=== PATIENT | female | born 1955 | race Caucasian/White ===

== ENCOUNTER 2023-03-04 14:34 | Outpatient (CLI) | payer MEDICARE, OTHER, SELFPAY ==
--- NOTE | ~2023-03-04 | XR_ITS ---
EXAMINATION: XR lumbar spine min 4V DATE: 03/04/2023 15:52 INDICATION: Rheumatoid arthritis with rheumatoid factor. TECHNIQUE: 5 views of lumbar spine were obtained. COMPARISON: None. FINDINGS: There is 8 degrees dextrocurvature of lumbar spine. There is 3 mm anterolisthesis of L3 on L4. Vertebral body heights are normal. There is moderately decreased disc height at L3-L4 and mildly decreased disc height at L4-L5. There is multilevel facet joint osteoarthritis, severe bilaterally fr om L3-L4 through L5-S1. IMPRESSION: 1. Moderate lumbar spondylosis. Reviewed, dictated and finalized at location E.
--- NOTE | ~2023-03-04 | XR_ITS ---
EXAMINATION: XR knee RT min 4V DATE: 03/04/2023 15:52 INDICATION: Rheumatoid arthritis with rheumatoid factor. TECHNIQUE: 4 views of right knee including weightbearing views were obtained. COMPARISON: None. FINDINGS: There is lateral subluxation of patella. No fracture. There is severe osteoarthritis of med ial and patellofemoral compartments and moderate osteoarthritis of lateral compartment. There is a sm all knee joint effusion. IMPRESSION: 1. Severe right knee osteoarthritis. 2. Small right knee joint effusion. Reviewed, dictated and finalized at location E.
--- NOTE | ~2023-03-04 | XR_ITS ---
EXAMINATION: XR knee LT min 4V DATE: 03/04/2023 15:52 INDICATION: Rheumatoid arthritis with rheumatoid factor. TECHNIQUE: 4 views of left knee including weightbearing views were obtained. COMPARISON: None. FINDINGS: Bone alignment is normal. No fracture. There is severe osteoarthritis of lateral compartmen t and mild osteoarthritis of medial and patellofemoral compartments. No knee joint effusion. IMPRESSION: 1. Severe left knee osteoarthritis. Reviewed, dictated and finalized at location E.
--- NOTE | ~2023-03-04 | XR_ITS ---
EXAMINATION: XR foot LT standing 2V DATE: 03/04/2023 15:52 INDICATION: Rheumatoid arthritis with rheumatoid factor. TECHNIQUE: 2 views of left foot with weightbearing were obtained. COMPARISON: None. FINDINGS: Bone alignment is normal. No fracture. There is mild osteoarthritis of talonavicular joint, first metatarsophalangeal joint, and some of the interphalangeal joints. There are enthesophytes at the posterior and plantar aspects of calcaneal tuberosity. IMPRESSION: 1. Mild polyarticular osteoarthritis. Reviewed, dictated and finalized at location E.
--- NOTE | ~2023-03-04 | XR_ITS ---
EXAMINATION: XR hand BI arthritis min 3V DATE: 03/04/2023 15:52 INDICATION: Rheumatoid arthritis with rheumatoid factor. TECHNIQUE: 4 views of right hand and 4 views of left hand on a total of 7 radiographs were obtained. COMPARISON: None. FINDINGS: RIGHT HAND: Scapholunate dissociation is noted. There is dorsal tilt of lunate, consistent with dorsa l intercalated segmental instability (DISI). There is moderate osteoarthritis of radioscaphoid joint, consistent with scapholunate advanced collapse (SLAC). There is mild osteoarthritis of triscaphe jose nt and first carpometacarpal joint. There is mild osteoarthritis of first metacarpophalangeal joint a nd some of the interphalangeal joints. There is severe osteoarthritis of first interphalangeal joint and moderate osteoarthritis of third proximal interphalangeal joint and second distal interphalangeal joint. LEFT HAND: Bone alignment is normal. No fracture. There is mild osteoarthritis of triscaphe joint. Th ere is severe osteoarthritis of triscaphe joint and mild osteoarthritis of first carpometacarpal join t. There is moderate osteoarthritis of first and second metacarpophalangeal joints. There is mild ost eoarthritis of some of the interphalangeal joints. There is severe osteoarthritis of second distal in terphalangeal joint and moderate osteoarthritis of third and fourth distal interphalangeal joints. IMPRESSION: 1. 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 2. Polyarticular osteoarthritis. No evidence of inflammatory arthropathy. Reviewed, dictated and finalized at location E. IMPRESSION: 1. Right-sided scapholunate dissociation with scapholunate advanced collapse (S LAC). 2. Polyarticular osteoarthritis. No evidence of inflammatory arthropathy.
--- NOTE | ~2023-03-04 | XR_ITS ---
EXAMINATION: XR foot RT standing 2V DATE: 03/04/2023 15:52 INDICATION: Rheumatoid arthritis with rheumatoid factor. TECHNIQUE: 2 views of right foot with weightbearing were obtained. COMPARISON: None. FINDINGS: Bone alignment is normal. No fracture. Osteopenia is noted. There is mild osteoarthritis of talonavicular joint and some of the interphalangeal joints. There are erosions versus subchondral cy sts of head of first proximal phalanx. There are enthesophytes at the posterior and plantar aspects o f calcaneal tuberosity. IMPRESSION: 1. Erosions versus subchondral cysts of head of first proximal phalanx, which may be secondary to ost eoarthritis or inflammatory arthropathy such as gout. 2. Polyarticular osteoarthritis. Reviewed, dictated and finalized at location E. IMPRESSION: 1. Erosions versus subchondral cysts of head of first proximal phalanx, which m ay be secondary to osteoarthritis or inflammatory arthropathy such as gout. 2. Polyarticular osteoarthritis.
[2023-03-04 16:13] LABS: Hematocrit 41.4 % (37.0-47.0); Hemoglobin 12.3 g/dL (12.0-15.0); Mean Corpuscular HGB Conc 29.7 g/dl (32-36); Mean Corpuscular Hemoglobin 25.2 pg (26-34); Mean Corpuscular Volume 84.7 fl (80-100); Mean Platelet Volume 10.1 fl (7.4-10.4); Platelet Count Result 254 k/mm3 (150-375); Red Blood Count 4.89 M/mm3 (4.2-5.4); White Blood Count 9.4 K/mm3 (4.5-10.0)
[2023-03-04 16:36] LABS: Alanine Aminotransferase 16 U/L (6-35); Albumin Level 4.2 g/dL (3.5-5.1); Alkaline Phosphatase 111 U/L (38-126); Anion Gap 6 mmol/L (8-16); Aspartate Amino Transferase 25 U/L (14-36); Bilirubin,Total 0.4 mg/dL (0.2-1.3); Blood Urea Nitrogen 17 mg/dL (7-17); CRP 0.9 mg/dL (<1.0); Calcium 9.6 mg/dL (8.4-10.2); Carbon Dioxide 32 mmol/L (22-30); Chloride 101 mmol/L (98-107); Estimated Glomerular Filt Rate > 60; Glucose 107 mg/dL (65-110); Potassium 4.6 mmol/L (3.4-5.0); Sodium 139 mmol/L (137-145)
[2023-03-04 16:49] LABS: Erythrocyte Sedimentation Rate 28 mm/hr (0-20)
[2023-03-04 16:58] LABS: Appearance Urine Clear (Clear); Bacteria Urine Rare /hpf; Bilirubin Urine Negative (Negative); Blood Urine Negative (Negative); Color Urine Yellow (Yellow); Glucose Urine UA 3+ mg/dL (Negative); Ketones Urine Negative (Negative); Leukocyte Esterase Ur Trace LEU/UL (Negative); Nitrate Urine Negative (Negative); Non Pathogenic Casts 0-2; Protein Urine Negative (Negative); RBC Urine 0-2 /hpf (0-2); Specific Grav Ur 1.013 (1.001-1.035); Squamous Epithelial Cell Urine Occasional /hpf (Few); Urobilinogen Urine 0.2 mg/dL (<2.0); WBC Urine 0-5 /hpf
[2023-03-04 17:00] LABS: Add Urine Microscopic? YES
[2023-03-10 22:51] LABS: Anti Cyclic Citrullinated Pept >250 Units (<20)
== END 2023-03-04 14:35 | disposition home or self-care (01) ==
PROVIDERS: PCP Family Medicine; Visit Provider Internal Medicine
DX: M05.79 Rheumatoid arthritis with rheumatoid factor of multiple sites without organ or systems involvement (principal); R76.8 Other specified abnormal immunological findings in serum; M15.9 Polyosteoarthritis, unspecified; Z79.899 Other long term (current) drug therapy; Z71.89 Other specified counseling; R89.9 Unspecified abnormal finding in specimens from other organs, systems and tissues; M47.816 Spondylosis without myelopathy or radiculopathy, lumbar region; M25.461 Effusion, right knee
CPT/HCPCS: 36415; 72110; 73130; 73564; 73620; 80053; 81001; 85027; 85652; 86140; 86200

== ENCOUNTER 2025-05-05 13:33 | Emergency (ER) | payer MEDICARE, OTHER, SELFPAY ==
--- OUTSIDE RECORDS SUMMARY | 2016-06-18 12:00 | XMS_ITS | Continuity of Care Document ---
Author Organization [facility] Address [address] [place] [phone] Phone Care Team Providers Care Giant Tire Repairer Name Role Phone Laurentmandie Zamzam MYRICK Unavailable Unavailable Procedures Procedure Date Progress Note THERAPEUTIC EXERCISES MANUAL THERAPY HOT/COLD PACK ELECTRIC STIMULATION UNA THERAPEUTIC EXERCISES MANUAL THERAPY HOT/COLD PACK ELECTRIC STIMULATION UNATT THERAPEUTIC EXERCISES NEUROMUSCULAR RE-ED MANUAL THERAPY HOT/COLD PACK ELECTRIC STIMULATION UNATT THERAPEUTIC EXERCISES NEUROMUSCULAR RE-ED MANUAL THERAPY HOT/COLD PACK ELECTRIC STIMULATION UNATT [facility] [employer] THERAPEUTIC EXERCISES MANUAL THERAPY HOT/COLD PACK ELECTRIC STIMULATION UNATT THERAPEUTIC EXERCISES MANUAL THERAPY HOT/COLD PACK ELECTRIC STIMULATION UNATT THERAPEUTIC EXERCISES NEUROMUSCULAR RE-ED MANUAL THERAPY HOT/COLD PACK ELECTRIC STIMULATION UNATT THERAPEUTIC EXERCISES NEUROMUSCULAR RE-ED MANUAL THERAPY HOT/COLD PACK ELECTRIC STIMULATION UNATT THERAPEUTIC EXERCISES NEUROMUSCULAR RE-ED MANUAL THERAPY THERAPEUTIC EXERCISES NEUROMUSCULAR RE-ED MANUAL THERAPY HOT/COLD PACK ELECTRIC STIMULATION UNATT THERAPEUTIC EXERCISES NEUROMUSCULAR RE-ED MANUAL THERAPY HOT/COLD PACK ELECTRIC STIMULATION UNA THERAPEUTIC EXERCISES NEUROMUSCULAR RE-ED MANUAL THERAPY HOT/COLD PACK ELECTRIC STIMULATION UNA PT EVALUATION THERAPEUTIC EXERCISES NEUROMUSCULAR RE-ED MANUAL THERAPY HOT/COLD PACK ELECTRIC STIMULATION UNA Progress Note THERAPEUTIC EXERCISES NEUROMUSCULAR RE-ED MANUAL THERAPY FUNC ACTIVITY ULTRASOUND THERAPY HOT/COLD PACK THERAPEUTIC EXERCISES NEUROMUSCULAR RE-ED MANUAL THERAPY FUNC ACTIVITY ULTRASOUND THERAPY HOT/COLD PACK THERAPEUTIC EXERCISES NEUROMUSCULAR RE-ED MANUAL THERAPY FUNC ACTIVITY ULTRASOUND THERAPY HOT/COLD PACK THERAPEUTIC EXERCISES NEUROMUSCULAR RE-ED MANUAL THERAPY FUNC ACTIVITY ULTRASOUND THERAPY HOT/COLD PACK THERAPEUTIC EXERCISES NEUROMUSCULAR RE-ED MANUAL THERAPY FUNC ACTIVITY ULTRASOUND THERAPY HOT/COLD PACK THERAPEUTIC EXERCISES NEUROMUSCULAR RE-ED MANUAL THERAPY FUNC ACTIVITY ULTRASOUND THERAPY HOT/COLD PACK THERAPEUTIC EXERCISES NEUROMUSCULAR RE-ED MANUAL THERAPY FUNC ACTIVITY HOT/COLD PACK THERAPEUTIC EXERCISES NEUROMUSCULAR RE-ED MANUAL THERAPY FUNC ACTIVITY HOT/COLD PACK THERAPEUTIC EXERCISES NEUROMUSCULAR RE-ED MANUAL THERAPY FUNC ACTIVITY HOT/COLD PACK [facility] [employer] THERAPEUTIC EXERCISES NEUROMUSCULAR RE-ED MANUAL THERAPY HOT/COLD PACK Progress Note THERAPEUTIC EXERCISES NEUROMUSCULAR RE-ED MANUAL THERAPY FUNC ACTIVITY HOT/COLD PACK THERAPEUTIC EXERCISES NEUROMUSCULAR RE-ED MANUAL THERAPY FUNC ACTIVITY HOT/COLD PACK OT EVALUATION THERAPEUTIC EXERCISES NEUROMUSCULAR RE-ED MANUAL THERAPY FUNC ACTIVITY HOT/COLD PACK Advance Directives Directive Yes / No Effective Date File Name No Information Encounters Encounter Description Practice Location Reason(s) For Visit Diagnoses Date Provider Providers Copied on Encounter [facility], [address], [id number], tel:[phone] [place] No Information 6 Reba Wyman. [address], [facility], [place]. tel:[phone] Referring Provider: Aric Garrison, [address] [facility], [place], [address]. tel:[phone] [facility], [id number], tel:[phone] [place] No Information 6 Reba Wyman. [address] [facility] [address], [place], [facility], . tel:[phone] Referring Provider: Aric Garrison, [address], [place], [address]. tel:[phone] [address], [place], [place], [id number], tel:[phone] [place] No Information Dec-0 8-201 6 Stief Zamzam. [address] [place] [address], [address], [place], [place], [facility], . tel:[phone] Referring Provider: Aric Garrison, [address], [place], [address]. tel:[phone] [address], [place], [place], [id number], tel:[phone] [place] No Information Dec-0 6-201 6 Stief Zamzam. [address] [place] [address], [address], [place], [facility], . tel:[phone] Referring Provider: Aric Garrison, [address], [place], [address]. tel:[phone] [address], [place], [place], [id number], tel:[phone] [place] No Information Dec-0 1-201 6 Stief Zamzam. [address] [place] [address], [address], [place], [facility], . tel:[phone] Referring Provider: Aric Garrison [address], [place], [address]. tel:[phone] [address], [place], [place], [id number], tel:[phone] [place] No Information Nov-2 9-201 6 Stief Zamzam. [address] [place] [address], [address], [place], [facility], . tel:[phone] Referring Provider: Aric Garrison [address], [place], [address]. tel:[phone] [place] [address] [address], [place], [place], [id number], tel:[phone] [place] No Information 6 Muehl Kelin. [address] [place] [address], [address] [address], . tel:[phone] Referring Provider: Aric Garrison [address], [place], [facility]. tel:[phone] [place] [address] [address], [place], [place], [id number], tel:[phone] [place] No Information 6 Stief Zamzam. [address] [place] [address], [address] [address], . tel:[phone] Referring Provider: Aric Garrison [facility], [place] [address]. tel:[phone] [place], [place] [address], [place], [place], [id number], tel:[phone] [place] No Information 6 Stief Zamzam. [address] [place] [address], [address] [address], . tel:[phone] Referring Provider: Aric Garrison [address], [place], [facility], [facility]. tel:[phone] [place] [address] [address], [place], [place], [id number], tel:[phone] [place] No Information 6 Stief Zamzam. [address] [place] [address], [address] [address], . tel:[phone] Referring Provider: Aric Garrison [address], [place] [address]. tel:[phone] [place] [address] [address], [place], [place], [id number], tel:[phone] [place] No Information 0-201 6 Stief Zamzam. [address] [facility], [address], [place], [address], [place]. tel:[phone] Referring Provider: Aric Garrison, [address], [place], [address]. tel:[phone] [address], [place], [place], [id number], [place] tel:[phone] [place] No Information 7-201 6 Stief Zamzam. [address] [place] [address], [address], [place], [address], [place]. tel:[phone] Referring Provider: Aric Garrison, [address], [place], [address]. tel:[phone] [place] [address], [place], [place], [id number], [place] tel:[phone] [place] Stiffness of unspecified joint, not elsewhere classifiedLumb ago with sciatica, left side 4 6 Stief Zamzam. [address] [place] [address], [address], [place], [address], [place]. tel:[phone] Referring Provider: Aric Garrison, [address], [place], [address]. tel:[phone] [place] [address], [place], [place], [id number], [place] tel:[phone] [place] No Information 6 Dahm Ira. [address] [place] [address], [address], [place], [address], [place]. tel:[phone] Referring Provider: Elvis Tejada, [address] [place] [address] [address]6B[address]12A, [place], [address]. tel:[phone] [address], [place], [place], [id number], [place] tel:[phone] Santana [place] No Information Oct-1 7-201 6 Dahm Ira. [address] [place] [address], [address], [place], [facility], . tel:[phone] Referring Provider: Andres Cheatham[address] [facility] [address], [place], [address]. tel:[phone] [place] [address], [place], [place], [id number], tel:[phone] [place] No Information Oct-1 2-201 6 Dahm Ira. [address] [place] [address], [address], [facility], . tel:[phone] Referring Provider: Andres Cheatham1 [facility] [address]A/6B[address]A, [place], [address]. tel:[phone] [place] [address], [id number], [place] tel:[phone] [place] No Information Oct-1 0-201 6 Schwarztraube r Sydnee. [address] [place] [address], [address], [facility], . tel:[phone] Referring Provider: Andres Cheatham1 [facility] [address]A/6B[address]A, [place], [address]. tel:[phone] [place] [address], [id number], [place] tel:[phone] [place] No Information Oct-0 7-201 6 Dahm Ira. [address] [place] [address], [address], [place], [address], [place]. tel:[phone] Referring Provider: Andres Cheatham1 [facility] [address] 6A/6B[address]A, [place], [address]. tel:[phone] [place], [place] [address], [place], [place], [id number], [place] tel:[phone] Santana [place] No Information Oct-0 5-201 6 Kulwinder Casillas. . Referring Provider: Andres Cheatham[address] 6A/[address]A, [place], [address]. tel:[phone] [place], [place] [address], [place], [place], [id number], tel:[phone] Santana Brown No Information Oct-0 3-201 6 Dahm Ira. [address] [place] [address], [address], [place], [facility], . tel:[phone] Referring Provider: Elvis Tejada, [address] 6A/[address]A, [place], [address]. tel:[phone] [place], [place] [address], [place], [place], [id number], tel:[phone] Santana [place] No Information Sep-2 9-201 6 Findeiss Vinny. . Referring Provider: Elvis Tejada, [address]A/[address]A, [place], [address]. tel:[phone] [place], [place] [address], [place], [place], [id number], tel:[phone] [place] No Information Sep-2 8-201 6 Dahm Ira. [address] [place] [address], [address], [facility], . tel:[phone] Referring Provider: Elvis Tejada, [address] 6A/[address]B/[address]A, [place], [address]. tel:[phone] [place], [place] [address], [place], [place], [id number], [place] tel:[phone] [place] No Information Sep-2 6-201 6 Dahm Ira. [address] [place] [address], [address], [place], [facility], . tel:[phone] Referring Provider: Elvis Tejada, [address] 6A/[address]B/[address]A, [place], [address]. tel:[phone], [id number], tel:[phone] Santana [place] No Information Sep-2 6 Dahm Ira. [address] [place] [address], [address], [facility], . tel:[phone] Referring Provider: Elvis Tejada, [address] [facility] [address] 6A/6B/[address]A, [place], [address]. tel:[phone] [place] [address], [id number], tel:[phone] [place] No Information Sep-1 6 Dahm Ira. [address] [place] [address], [address], [facility], . tel:[phone] Referring Provider: Elvis Tejada, [address] [facility] [address] 6A/6B/12A, [place], [address]. tel:[phone] [place] [address], [id number], tel:[phone] [place] Pain in right handStiffness of right wrist, not elsewhere classifiedStif fness of right hand, not elsewhere classifiedEffu bruno, right wristMuscle weakness (generalized)C arpal tunnel syndrome, right upper limb Sep-1 6 Dahm Ira. [address] [place] [address], [facility] [address], [place], [facility], . tel:[phone] Referring Provider: Elvis Tejada [address] [facility] [address] 6A/6B/12A, [place], [address]. tel:[phone] Family History Family Member Type Diagnosis Age At Onset No Information Payers Payer name Insurance type Covered green party ID Authoriza tion(s) No Information Social History Type Description Quantity Date Captured Comments Sex Female Smoking Status No Information Chief Complaint And Reason For Visit No Information Reason For Referral Reason For Referral No Information History Of Present Illness Encounter Date Complaint History Of Prese nt Illness No Information Functional Status Date Functional Assessmen t No Information Instructions Date Instruction Additional Infor mation No Information Assessments Type Assessment Date No Information Patient Care Teams Name Effective Dates (start - stop) Status Members No Information
--- NOTE | ~2025-05-05 | XR_ITS ---
EXAMINATION: XR chest 2V, 05/05/2025 14:15 CDT HISTORY: chest pain COMPARISON: No comparisons available. Technique: 2 views obtained. Findings: Mild pulmonary venous congestion. No pneumothorax. Moderate cardiomegaly. Mediastinal and hilar contours are within normal limits. Bony thorax no acute abnormality. Impression: CHF Reviewed, dictated and finalized at location P. Impression: CHF
--- NOTE | ~2025-05-05 | CT_ITS ---
EXAMINATION: CT diagnostic chest w con, 05/05/2025 15:20 CDT HISTORY: chest pain COMPARISON: No comparisons available. TECHNIQUE: CT scan of the chest was performed with contrast. Isovue 300, 92cc injected IV. One or more of the following dose reduction techniques were used: automated exposure control, adjustment of the mA and/or kV according to patient size, use of iterative reconstruction technique. FINDINGS: No significant coronary calcification is present ([id number]) LUNGS: Clear without consolidation, effusion, or pneumothorax. HEART AND PERICARDIUM: Mild cardiomegaly. AORTA: Normal caliber aorta. ADENOPATHY/MEDIASTINUM: None. LIMITED VIEWS OF THE ABDOMEN: Cirrhotic disease of the liver suspected. Calcified splenic granulomas. Minimal cholelithiasis. OSSEOUS STRUCTURES: No acute osseous abnormality.No suspicious lesions. OVERLYING SOFT TISSUES: Unremarkable. THYROID: The thyroid is unremarkable. IMPRESSION: 1. No etiology identified to explain the patient's symptoms. Follow up suggested if symptoms persist. Reviewed, dictated and finalized at location P. IMPRESSION: 1. No etiology identified to explain the patient's symptoms. Follow up suggeste d if symptoms persist.
[2025-05-05 13:36] VITALS: BP 125/79; PULSE 86; RESP 20; TEMP 36.5; O2SAT 97
[2025-05-05 13:45] VITALS: PULSE 92; O2SAT 94
--- NOTE | 2025-05-05 13:48 | ECG_ITS ---
Test Date: 2025-05-05 18:15:50 Measurements Intervals [place] Rate: 85 P: 0 MS: 0 QRS: -18 QRSD: 90 T: -7 QT: 287 QTc: 343 Interpretive Statements ATRIAL FIBRILLATION LOW QRS VOLTAGE IN PRECORDIAL LEADS [QRS DEFLECTION < 1.0 mV IN CHEST LEADS] PATTERN CONSISTENT WITH PULMONARY DISEASE No previous ECG available for comparison Electronically Signed On 05-06-2025 03:09:30 VICE PRESIDENT OF SOFTWARE ENGINEERING by Zion Degroot M.D.
--- OUTSIDE RECORDS SUMMARY | 2025-05-05 14:31 | XMS_ITS | Encounter Summary ---
Author Organization [facility] Healthcare Address [address] [place] [address] Care Team Providers Care Top Tile Decorator Name Role Phone Cassie Morales MD Primary Care Provider [phone] Vianney Gómez LPN Unavailable [phone] Tomasa Piña MA Unavailable Naida Zamora MD Unavailable [phone] Osito Bauer MD Unavailable [phone] Jamal Barnard Si, MD Unavailable Encounter Details Date Type Department Care Team (Late st Contact Info) Description 12/20/2020 Community Orders [facility] EpicCare Link Osito Bauer MD [address] [place] [address] Other form of dyspnea (Primary Dx) Social History Tobacco Use Types Packs/Day Years Used Date Smoking Tobacco: Never Smokeless Tobacco: Never Alcohol Use Standard Drinks/Week Comments No 0 (1 standard drink = 0.6 oz pur e alcohol) AUDIT-C Answer Date Recorded Q1: How often do you have a drink containing alc ohol? Never 09/30/2020 Average Number of Drinks Not on file 021 Q3: How often do you have si x or more drinks on one occasion? 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 Gender Identity Female 12/01/2023 8:05 AM CDT Sexual Orientation Not on file Occupation Industry Job Start Date Job End Date retired Not on file Not on file Not on file documented as of this encounter Plan of Treatment Not on file documented as of this encounter Visit Diagnoses Diagnosis Other form of dyspnea- Primary documented in this encounter Orders Case Request Count Last Ordered Date First Orde red Date CASE REQUEST TAX AUDIT MANAGER 1 12/20/2020 documented in this encounter Care Teams Top Tile Decorator Relationship Specialty Start Date End Date Cassie Morales MD PCP - General Family Medicine 06/20/19 Vianney Gómez LPN Cryptographic Vulnerability Analyst 05/06/21 05/06/21 Tomasa Piña MA [address] [place] [address] [address] [place] [address] ACO Care Heel Buffer 12/02/23 Naida Zamora MD [address] [facility] [address] [place] [address] Consulting Physician Pulmonary Disease 02/16/25 Osito Bauer MD [address] [facility] [address] [place] [address] Consulting Physician Cardiovascular Disease 02/16/25 Jamal Barnard Si, MD [address] [facility] [address] [place] [address] Consulting Physician Neurology 02/16/25 documented as of this encounter
--- OUTSIDE RECORDS SUMMARY | 2025-05-05 14:32 | XMS_ITS | Patient Health Record ---
Author Organization [facility] Address [address] [place] [phone] Care Team Providers Care Production Manager Name Role Phone Gale Kerr Primary Care Provider Allergies Allergen (clinical drug ingredient) Drug/Non Drug Allergy documented on EMR Reaction Allergy Type Onset Date Status brimonidine Brimonidine Tartrate eye irritation Drug Allergy Active benzalkonium chloride Benzalkonium Chloride eye irritation Drug Allergy Active gentamicin Gentamicin hives Drug Allergy Activ e Strawberries hives Allergy Active Substance with sulfonamide structure and antibacterial mechanism of action (substance) Sulfa Antibiotics hives Drug Allergy Active sulfamethoxazole / trimethoprim Sulfamethoxazole/T rimethoprim rash Drug Allergy Active Reason For Referral No Information Medications Medication SIG (Take, Route, Frequency, Duration) Notes Start Date End Date Status Dicyclomine HCl 10 MG Capsule 1 capsule Orally twice a day; Duration: 90 days Active Amiodarone HCl 200 MG Tablet 1 tablet Or ally Once a day; Duration: 90 days Active tiZANidine HCl 2 MG Tablet 1 tablet Orally every 8 hours; Duration: 90 days As needed Active Acetaminophen 650 MG Tablet 1 tablet Orally every 8 hours; Duration: 90 days As needed Active Timolol Maleate PF 0.5 % Solution 1 drop into each eye Ophthalmic twice a day; Duration: 90 days Active Sucralfate 1 GM Tablet 1 tablet Orally T wice a day; Duration: 90 days Active Rosuvastatin Calcium 5 MG Tablet 1 tablet Orally Once a day; Duration: 90 days Active Rivaroxaban 20 MG Tablet 1 tablet with f ood Orally Once a day; Duration: 90 days Active Potassium Chloride ER 20 MEQ Tablet Extended Release 1 tablet with food Orally Once a day; Duration: 90 days Active Polyethylene Glycol 3350 17 GM Packet 1 packet mixed with 8 ounces of fluid Orally Once a day; Duration: 90 days Active Nitroglycerin 0.4 MG Tablet Sublingual 1 tablet under the tongue and allow to dissolve as needed. Take every 5 minutes up to 3 times if chest pain persists Sublingual Three times a day; Duration: 90 days Active Multivitamin - Tablet 1 tablet Orally On ce a day; Duration: 90 days Active Miconazole Nitrate 2 % Powder 1 applicat ion Externally Twice a day; Duration: 90 days Active Methotrexate Sodium 2.5 MG Tablet 10 tablets Orally once a week; Duration: 90 days Active Losartan Potassium 25 MG Tablet 1 tablet Orally Once a day; Duration: 90 days Active Lidocaine-Prilocaine 2.5-2.5 % Cream as directed Externally twice a day; Duration: 90 days Active Hydroxychloroquine Sulfate 2 00 MG Tablet 1 tablet Orally twice a day; Duration: 90 days Active Fluticasone Propionate 50 MCG/ACT Suspension 1 spray in each nostril Nasally Once a day; Duration: 90 days As needed Active Furosemide 20 MG Tablet 2 tablets Orally twice a day; Duration: 30 days Active Linzess 290 MCG Capsule [address] 30 minutes before the first meal of the day on an empty stomach Orally Once a day; Duration: 30 days Active Metoprolol Succinate ER 50 M G Tablet Extended Release 24 Hour 1 tablet Orally twice a day Active traMADol HCl 50 MG Tablet 1 tablet as ne eded Orally every 8 hrs Active Fluorometholone 0.1 % Suspension 1 drop into each eye Ophthalmic Twice a day; Duration: 90 days Active Ferrous Sulfate 325 (65 Fe) MG Tablet 1 tablet Orally daily; Duration: 90 days Active Esomeprazole Magnesium 20 MG Capsule Delayed Release 1 capsule Orally twice a day; Duration: 90 days Active Folic Acid 1 MG Tablet 2 tablets Orally Once a day; Duration: 90 days Active Empagliflozin-metFORMIN HCl 5-1000 MG Tablet 1 tablet Orally daily; Duration: 90 days Active DULoxetine HCl 60 MG Capsule Delayed Release Particles 1 capsule Orally Once a day; Duration: 90 days Active Docusate Sodium 100 MG Capsule 1 capsule Orally twice a day; Duration: 90 days Active Social History Tobacco Use: Social History Observation Description Date Details (start date - stop date) Never Smoker NA - NA Social History Drug/Alcohol: Social Info Question Answer Notes Drugs Have you used drugs other than those for medical reasons in the past 12 months? No AUDIT-C (Standard) Did you have a drink containing alcohol in the past year? No Points 0 Interpretation Negative Tobacco Use: Social Info Question Answer Notes Tobacco Control (Standard) Tobacco use: Nonsmoker Problems Problem Type SNOMED Code ICD Code Onset Dates Problem Status W/U Status Risk Notes Problem Type II diabetes mellitus without complication (680402011) Type 2 diabetes mellitus without complications (E11.9) Active confirmed Problem Chronic atrial fibrillation (661501853) Chronic atrial fibrillation (I48.20) Active confirmed Problem Gastroesophageal reflux disease (998509222) GERD without esophagitis (K21.9) Active confirmed Problem Benign essential hypertension (9101471) Benign essential hypertension (I10) Active confirmed Problem Dyslipidemia (557706157) Dyslipidemia (E78.5) Active confirmed Problem Arthritis (3695624) Arthritis (M19.90) Active confirmed Problem Morbid obesity (886351714) Morbid obesity (E66.01) Active confirmed Problem Carpal tunnel syndrome of left wrist (840587085376298) Carpal tunnel syndrome of left wrist (G56.02) Active confirmed Problem Essential hypertension (86939583) Hypertension, unspecified type (I10) Active confirmed Problem Rheumatoid arthritis (83088297) Rheumatoid arthritis of other site, unspecified whether rheumatoid factor present (M06.9) Active confirmed Problem Diverticulitis (86075560) Diverticulitis (K57.92) Active confirmed Problem Lupus (392914997) Lupus (M32.9) Active confirme d Problem Type II diabetes mellitus without complication (077512189) Controlled type 2 diabetes mellitus without complication, without long-term current use of insulin (E11.9) Active confirmed Vital Signs Heart Rate 81 /min 03/22/2025 Blood pressure diastolic 89 mm Hg 03/22/2025 Blood pressure systolic 130 mm Hg 03/22/2025 Encounters Encounter Location Date Provider Diagnosis [address] [address] 03/22/2025 Gale Kerr Benign essential hypertension I10 ; Lupus M32.9 ; Dyslipidemia E78.5 ; Arthritis M19.90 ; Controlled type 2 diabetes mellitus without complication, without long-term current use of insulin E11.9 ; Chronic atrial fibrillation I48.20 ; Murillo's palsy G51.0 and Hemorrhoids, unspecified hemorrhoid type K64.[address] [place] [address] 03/13/2025 Gale Kerr [facility] [place] [address] [place] [address] 03/16/2025 Gale Kerr [facility] [place] [address] [place] [address] 03/27/2025 Gale Kerr [facility] [place] [address] [place] [address] 04/02/2025 Gale Kerr [facility] [place] [address] [place] [address] 04/04/2025 Gale Kerr [facility] [address] [id number] 04/05/2025 Gale Cirilo [facility] [address] [place] [id number] 04/17/2025 Gale Kerr [facility] [place] [address] [place] [address] 04/22/2025 Gale Kerr [facility] [address] [id number] 04/30/2025 Gale Kerr Assessments Encounter Date Diagnosis (ICD Code) Assessment Notes Treatment Notes Treatment Clinical Notes Section Notes 03/22/2025 Benign essential hypertension (ICD-10 - I10) Managed well on current medications. Continue current treatment plan and monitoring. 03/22/2025 Lupus (ICD-10 - M32.9) Patient has no complaints at this time. She is followed by a nurse extern. 03/22/2025 Dyslipidemia (ICD-10 - E78.5) No labs on file. Order given today to draw a lipid panel on next lab day. 03/22/2025 Arthritis (ICD-10 - M19.90) 03/22/2025 Controlled type 2 diabetes mellitus without complication, without long-term current use of insulin (ICD-10 - E11.9) No labs on file at this time. Managed on p.o. diabetic medications. Order given today to draw A1c on next lab day. 03/22/2025 Chronic atrial fibrillation (ICD-10 - I48.20) Rate is controlled. Managed well on current medications. Continue current treatment plan and monitoring. 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 The last time she had Murillo's palsy, the left-sided drooping on her face did not go away, she reports she did not have a stroke that it is from her Murillo's palsy. 03/22/2025 Hemorrhoids, unspecified hemorrhoid type (ICD-10 - K64.9) Patient reports that she recently had surgery to have hemorrhoids banded. She reports she is no longer having any bleeding from her rectum. She has a follow-up with the surgeon on 03/28/2025. 03/22/2025 Other Continue current treatment plan.Staff to continue to monitor and report any changes.Patient education provided and questions/ana rns addressed.Follo w up in three months unless necessary sooner. Draw CBC, CMP, iron panel, and vitamin D level on next lab day. Plan Of Treatment Future Test Test Name Order Date Iron, Serum 03/24/2025 Hemoglobin A1c 03/24/2025 Vitamin D, 25-Hydroxy 03/24/2025 Lipid Panel 03/24/2025 Comp. Metabolic Panel (14) 03/24/2025 CBC 03/24/2025 Insurance Providers Payer Name Payer Address Payer Phone Subscriber Number Group Number Insured Name Patient Relationship to Insured Coverage Start Date Coverage End Date [employer] of [place] [address] [facility] [place] [id number] [phone] [id number] Paula Alejandra Self - patient is the insured [facility] [address] [place] [address] [id number] Paula Alejandra Self - patient is the insured Medical (General) History Medical History History ICD Code Allergic rhinitis J30.9 Arthritis M19.90 Carpal tunnel syndrome of left wrist G56 .02 Chest pain, unspecified R07.9 GERD without esophagitis K21.9 Murillo's palsy G51.0 Diverticulitis K57.92 Hypertension, unspecified type I10 Irritable bowel syndrome, unspecified K5 8.9 Rheumatoid arthritis of othe r site, unspecified whether rheumatoid factor present M06.9 Morbid obesity E66.01 SOB (shortness of breath) on exertion R0 6.02 Type 2 diabetes mellitus without complic ations E11.9 Surgical History Surgery Date(Month/Year) CARPAL TUNNEL RELEASE ANKLE ARTHROSCOPY HYSTERECTOMY COLONOSCOPY CORNEAL TRANSPLANT KNEE ARTHROSCOPY TONSILLECTOMY COLONOSCOPY CARDIAC CATHETERIZATION EYE SURGERY
--- OUTSIDE RECORDS SUMMARY | 2025-05-05 14:32 | XMS_ITS | Encounter Summary ---
Author Organization [facility] Care Team Providers Care Dry Molder Name Role Phone Nori Edgar MD Primary Care Provider Aric Garrison MD Primary Care Provider [phone] Rafael Roth MD Primary Care Provider [phone] No, Physician Primary Care Provider Cassie Morales MD Primary Care Provider [phone] Vianney Gómez LPN Unavailable [phone] Tomasa Piña MA Unavailable Naida Zamora MD Unavailable [phone] Osito Bauer MD Unavailable [phone] [facility], [facility] Unavailable Encounter Details Date Type Department Care Team (Latest Contact Info) Description 05/02/2013 Orders Only [facility] Provider, MD Dionisio [address] [place] [id number] Social History Tobacco Use Types Packs/Day Years Used Date Smoking Tobacco: Never Assessed Comments Unknown Sex and Gender Information Value Date Recorded Sex Assigned at Not on file Legal Sex Female 3:36 AM YOUTH DIRECTOR Gender Identity Female 12/01/2023 8:05 AM CDT Sexual Orientation Not on file documented as of this encounter Plan of Treatment Not on file documented as of this encounter Procedures Procedure Name Priority Date/Time Associated Diagnosis Comments PROCEDURE - RESULT 07/26/2018 12 :00 AM YOUTH DIRECTOR documented in this encounter Results * PROCEDURE - RESULT (07/26/2018 12:00 AM YOUTH DIRECTOR) Narrative 07/26/2018 12:00 AM YOUTH DIRECTOR Ordered by an unspecified provider. us Historical Provider Final Res ult documented in this encounter Visit Diagnoses Not on filedocumented in this encounter Additional Health Concerns Infection Onset Date Last Indicated Resolved Time COVID: Suspected 01/15/2020 01/15/2020 01/29/2020 3:05 AM CDT documented as of this encounter Care Teams Dry Molder Relationship Specialty Start Date End Date Nori Edgar MD [address] [place] [address] PCP - General Family Practice 02/25/18 10/16/18 Aric Garrison MD [address] [place] [address] PCP - General Internal Medicine 10/17/18 03/07/19 Rafael Roth MD [address] [place] [address] PCP - General 03/08/19 05/29/19 No, Physician PCP - General 05/30/19 06/19/19 Cassie Morales MD PCP - General Family Medicine 06/20/19 Vianney Gómez LPN Documentation Specialist 05/06/21 05/06/21 Tomasa Piña MA [address] [place] [address] [place] [address] ACO Care Gin Pole Operator 12/02/23 Naida Zamora MD [address] [place] [address] Consulting Physician Pulmonary Disease 02/16/25 Osito Bauer MD [address] [place] [address] Consulting Physician Cardiovascular Disease 02/16/25 Jamal Barnard Si, MD [address] [place] [address] Consulting Physician Neurology 02/16/25 documented as of this encounter
--- OUTSIDE RECORDS SUMMARY | 2025-05-05 14:32 | XMS_ITS | Encounter Summary ---
Author Organization [facility] Address [address] [place] [address] Care Team Providers Care Presentation Designer Name Role Phone Cassie Morales MD Primary Care Provider [phone] Tomasa Piña MA Unavailable Naida Zamora MD Unavailable [phone] Osito Bauer MD Unavailable EvonJamal Si, MD Unavailable Encounter Details Date Type Department Care Team (Late st Contact Info) Description 04/17/2025 Results Follow-Up [facility] Family Medicine [address] [facility] [address] [place] [address] Cassie Morales MD [address] [place] [phone] SCAN - LABS Social History Tobacco Use Types Packs/Day Years Used Date Smoking Tobacco: Never Passive Smoke Exposure: Past Smokeless Tobacco: Never Passive Exposure Comments:as a child Alcohol Use Standard Drinks/Week Comments Never 0 (1 standard drink = 0.6 oz pur e alcohol) [facility] Utilities Answer Date Recorded In the past 12 months has e electric, gas, oil, or water company threatened to shut off services in your home? No 10/16/2024 Social Connection and Isolation Panel Answer Date Recorded In a typical week, how many times do you talk on the phone with family, friends, or neighbors? More than three times a week 10/16/2024 How often do you get togethe r with friends or relatives? More than three times a week 10/16/2024 How often do you attend chur ch or judaism services? 1 to 4 times per year 10/16/2024 Do you belong to any clubs o r organizations such as bahai groups, unions, fraternal or athletic groups, or school groups? No 10/16/2024 How often do you attend meet ings of the clubs or organizations you belong to? Never 10/16/2024 Are you , , di vorced, , never , or living with a partner? 10/16/2024 Overall Financial Resource Strain (CARDIA) Answe r Date Recorded How hard is it for you to pa y for the very basics like food, housing, medical care, and heating? Not hard at all 10/16/2024 PHQ-2 Answer Date Recorded PHQ-2 Total Score (If total score is 3 or more points, staff should administer the PHQ-9) 2 02/07/2025 Hunger Vital Sign Answer Date Recorded Within the past 12 months, y ou worried that your food would run out before you got the money to buy more. Never true 10/17/19 25 Within the past 12 months, t he food you bought just didn't last and you didn't have money to get more. Never true 10/16/2024 PRAPARE - Transportation Answer Date Re corded In the past 12 months, has l ack of transportation kept you from medical appointments or from getting medications? No 10/03 In the past 12 months, has l ack of transportation kept you from meetings, work, or from getting things needed for daily living? No 10/16/2024 PHQ-9 Answer Date Recorded PHQ-9 Total Score 9 02/07/2025 Housing Stability Vital Sign Answer Aryan e Recorded In the last 12 months, was t here a time when you were not able to pay the mortgage or rent on time? No 10/16/2024 In the past 12 months, how m any times have you moved where you were living? 0 10/16/2024 At any time in the past 12 m [facility], were you homeless or living in a [place] [facility] [place] facility (including now)? No 10/16/2024 AUDIT-C Answer Date Recorded Q1: How often do you have a drink containing alcohol? Never 02/16/2025 Q2: How many drinks containi ng alcohol do you have on a typical day when you are drinking? Patient does not drink Q3: How often do you have si x or more drinks on one occasion? Never 02/16/2025 Personal Safety Answer Date Recorded Have you ever been in or are you currently in a harmful physical or emotional relationship or is someone making you feel afraid or unsafe? Denies 03/02/2025 Comments No Sex and Gender Information Value Date Recorded Sex Assigned at Not on file Legal Sex Female 3:36 AM EMBROIDERY ASSISTANT Gender Identity Female 12/01/2023 8:05 AM CDT Sexual Orientation Not on file Occupation Industry Job Start Date Job End Date retired Not on file Not on file Not on file documented as of this encounter Plan of Treatment Not on file documented as of this encounter Visit Diagnoses Not on filedocumented in this encounter Care Teams Presentation Designer Relationship Specialty Start Date End Date Cassie Morales MD PCP - General Family Medicine 06/20/19 Tomasa Piña MA [address] [place] [address] [address] [place] [address] ACO Care Hl7 Interface Developer 12/02/23 Naida Zamora MD [address] [facility] [address] [place] [address] Consulting Physician Pulmonary Disease 02/16/25 Osito Bauer MD [address] [facility] [address] [place] [address] Consulting Physician Cardiovascular Disease 02/16/25 Jamal Barnard Si, MD [address] [facility] [address] [place] [address] Consulting Physician Neurology 02/16/25 documented as of this encounter
--- OUTSIDE RECORDS SUMMARY | 2025-05-05 14:32 | XMS_ITS | Clinical Summary ---
Author Organization [facility] Address [address] [place] [address] Care Team Providers Care Bobbin Collector Name Role Phone Cassie Morales MD Primary Care Provider [phone] Tomasa Piña MA Unavailable Naida Zamora MD Unavailable [phone] Osito Bauer MD Unavailable [phone] Evon, Jamal Edgar MD Unavailable Allergies Active Allergy Reactions Criticality Noted Date Comments Benzalkonium Chloride Eye irritation Low 03/17/2018 Brimonidine Tartrate Eye irritation Low 03/17/2018 Follicular conjunctivitis Follicular conjunctivitis Gentamicin Hives Medium 06/10/2018 Gilberts Hives Medium 06/10/2018 Sulfa (Sulfonamide Antibiotics) Hives,Itching Medium 03/01/2018 Sulfamethoxazole-Trim ethoprim Rash,Itching,Urtica evan Medium 01/21/2006 Medications nitroglycerin (NITROSTAT) 0.[address] 1 tablet (0.4 mg total) under the tongue every 5 (five) minutes as needed for chest pain Active acetaminophen ER (TYLENOL) 650 mg 8 hr tabletIndication s:alternates with oxycodone Take 1 tablet (650 mg total) by mouth every 8 (eight) hours as needed for pain Active multivitamin capsule Take 1 capsule by mouth daily Active timolol (Timoptic Ocudose, PF,) 0.5 % dropperette Administer 1 drop into both eyes 2 (two) times a day 180 each 3 3 Active traMADoL (ULTRAM) 50 mg tabletIndication s:Pain in joint involving multiple sites Take 1 tablet (50 mg total) by mouth 2 (two) times a day as needed for pain 60 tablet 3 Active fluorometholone (FML) 0.1 % ophthalmic suspension INSTILL 1 DROP IN BOTH EYES TWICE A DAY 5 mL 17 3 Active Additional Information Patient taking differently: 1 drop each eye 4 times daily, Informant: Self, Reported on 03/02/2025 fluticasone propionate (FLONASE) 50 mcg/actuation nasal spray Administer 1 spray into each nostril daily as needed for rhinitis Active esomeprazole DR (NexIUM) 20 mg capsule Take 1 capsule (20 mg total) by mouth 2 (two) times a day before breakfast and dinner 60 capsule 11 4 Active blood-glucose sensor device Free style allie 2 change every 14 days 2 each 2 4 Active blood-glucose meter misc Use daily or as directed for monitoring of diabetes. 1 each 4 Active folic acid (FOLVITE) 1 mg tablet Take 2 tablets (2 mg total) by mouth daily 60 tablet 11 4 Active FreeStyle [place] Lite kit 4 Active hydroxychloroqui ne (PLAQUENIL) 200 mg tablet Take 1 tablet (200 mg total) by mouth 2 (two) times a day 180 tablet 1 5 Active linaCLOtide (Linzess) 290 mcg capsule Take 1 capsule (290 mcg total) by mouth daily 90 capsule 1 5 Active methotrexate 2.5 mg tabletIndication s:take 10 tabs by mouth every 7 days Take 10 tablets (25 mg total) by mouth every 7 days 40 tablet 11 5 09/19/19 26 Active Additional Information Patient taking differently:25 mg oral Every 7 days,fridays, Indications: take 10 tabs by mouth every 7 days, Informant: Self, Reported on 03/02/2025 docusate sodium (COLACE) 100 mg capsuleIndicatio ns:constipation Take 1 capsule (100 mg total) by mouth 2 (two) times a day 180 capsule 1 5 Active miconazole 2 % powder Apply topically 2 (two) times a day 70 g 1 5 Active polyethylene glycol (MIRALAX) 17 gram packet Take 1 packet (17 g total) by mouth daily Active DULoxetine DR (CYMBALTA) 60 mg capsule Take 1 capsule (60 mg total) by mouth daily 30 capsule 3 5 Active Xarelto 20 mg tablet Take 1 tablet (20 mg total) by mouth daily 100 tablet 1 5 Active lidocaine-priloc dajuan 5-2.5-2.5 % Kit, Patch, Medicated, Cream Apply topically Active rosuvastatin (CRESTOR) 5 mg tabletIndication s:Dyslipidemia Take 1 tablet (5 mg total) by mouth daily 90 tablet 2 5 Active tiZANidine (ZANAFLEX) 2 mg tablet Take 1 tablet (2 mg total) by mouth every 8 (eight) hours as needed for muscle spasms 30 tablet 1 5 Active amiodarone (PACERONE) 200 mg tablet Take 1 tablet (200 mg total) by mouth daily 90 tablet 1 5 Active sucralfate (CARAFATE) 1 gram tablet Take 1 tablet (1 g total) by mouth 2 (two) times a day 60 tablet 11 5 12/12/19 26 Active metoprolol XL (TOPROL-XL) 50 mg extended release tablet Take 1 tablet (50 mg total) by mouth 2 (two) times a day 60 tablet 2 5 Active ferrous sulfate 325 mg (65 mg of elemental iron) tabletIndication s:Iron Deficiency Anemia Take 1 tablet (325 mg total) by mouth daily with breakfast 90 tablet 1 5 Active lancets miscIndications: Controlled type 2 diabetes mellitus without complication, without long-term current use of insulin Test 2-3 times daily 100 each 2 5 Active blood glucose diagnostic (glucose blood) strip Test 2-3 times daily 100 each 2 5 03/17/20 26 Active empagliflozin-me tformin (Synjardy XR) 5-1,000 mg tablet, IR & ER, biphasic 24hrIndications: Controlled type 2 diabetes mellitus without complication, without long-term current use of insulin Take 1 tablet by mouth daily 90 tablet 1 5 Active dicyclomine (BENTYL) 10 mg capsuleIndicatio ns:Irritable Bowel Syndrome Take 1 capsule (10 mg total) by mouth 2 (two) times a day 180 capsule 1 5 Active losartan (COZAAR) 25 mg tablet Take 1 tablet (25 mg total) by mouth daily Active potassium chloride ER 20 mEq CR tablet Take 1 tablet (20 mEq total) by mouth daily Active multivitamin with folic acid 400 mcg tablet Take 1 tablet by mouth daily Active furosemide (LASIX) 20 mg tabletIndication s:Edema,hyperten bruno,40 mg in the am and 20 mg in the evening Take 2 tablets (40 mg total) by mouth 2 (two) times a day 120 tablet 1 5 Active folic acid (FOLVITE) 400 mcg tablet Take 2 tablets (800 mcg total) by mouth daily Active Active Problems Problem Noted Date Diagnosed Date Vertigo 11/29/2024 Severe obesity 10/31/2024 Body mass index 40.0-44.9, adult ([facility]) 10/31 Cystitis 10/14/2024 Acute UTI 10/14/2024 Acute anemia 09/18/2024 Dizziness 09/18/2024 Assessment & Plan (09/18/2024 12:54 PM CDT): New Likely secondary to the anemia Left arm cellulitis 12/02/2023 Assessment & Plan (12/12/2023 3:01 PM CDT): New Order linezolid Other hemorrhoids 12/02/2023 Assessment & Plan (11/06/2024 3:39 PM CDT): Most recent colonoscopy performed on November 2023 showed large external hemorrhoids, as well as internal hemorrhoids. She was referred to Dr. Luna for possible surgical consultation but due to her cardiac standpoint surgery was not recommended. She currently is on high dose of Linzess to help minimize her complaints of constipation and reports that with this increase that her complaints of constipation as well as rectal bleeding due to hemorrhoids has fully resolve. -Discuss how minimizing her complaints of constipation can minimize her complaints with her hemorrhoids. -Discussed ways how to help with hemorrhoids including tucks pads, using baby wipes, rectal suppositories, Epsom salt baths. -Follow up with Colorectal surgery as needed Assessment & Plan (12/12/2023 3:02 PM CDT): New Persistent Refer to general surgery Melena 11/26/2023 Epigastric pain 11/25/2023 Hematochezia 09/15/2023 Assessment & Plan (09/22/2023 9:14 AM CDT): New Refer to GI Non-seasonal allergic rhinitis due to pollen BMI 38.0-38.9,adult 01/26/2023 Primary osteoarthritis of both knees 12/16/2022 Pain in joint involving multiple sites Overview (11/25/2022): Uncontrolled. [place] postive and RF, CRP, and ESR elevated. She has an appt with Rheum 11/23. Increase Plaquenil to 200mg BID. Assessment & Plan (11/25/2022 5:02 AM CDT): Uncontrolled Use tramadol PRN Hyperuricemia 11/19/2022 Assessment & Plan (12/10/2024 5:15 PM CDT): Chronic Stable Diet controlled Assessment & Plan (12/12/2023 3:01 PM CDT): Chronic stable Assessment & Plan (11/25/2022 4:59 AM CDT): Chronic stable Hypokalemia 07/29/2022 Assessment & Plan (07/30/2022 4:35 AM ACID PUMP OPERATOR): Worsened Increase KCL to 20meq daily Need for immunization against influenza 04/20/20 Primary osteoarthritis of right knee 12/23/2021 Morbid (severe) obesity due to excess calories 0 12/18/2021 Assessment & Plan (12/28/2021 11:13 AM CDT): BMI Follow-up includes: nutrition counseling and exercise counseling. BMI 40.0-44.9, adult 12/18/2021 Assessment & Plan (12/28/2021 11:12 AM CDT): BMI Follow-up includes: nutrition counseling and exercise counseling. Left carpal tunnel syndrome 10/27/2021 Assessment & Plan (11/21/2021 4:33 AM CDT): New Refer to ortho Epiretinal membrane (ERM) of right eye Assessment & Plan (10/21/2021 12:03 PM CDT): Mild; not likely cause of decreased vision right eye (OD) Right hand pain 06/12/2021 Assessment & Plan (06/23/2021 5:28 AM ACID PUMP OPERATOR): New Order uric acid Cerebrovascular disease 05/19/2021 Assessment & Plan (03/20/2024 9:13 PM CDT): Chronic Stable Cont xarelto Assessment & Plan (09/22/2023 9:13 AM CDT): Chronic Stable Cont xarelto Assessment & Plan (11/25/2022 5:04 AM CDT): Chronic Stable Cont xarelto Assessment & Plan (04/24/2022 4:56 AM CDT): Stable Cont xartelto Assessment & Plan (12/28/2021 11:16 AM CDT): Stable Cont xartelto Assessment & Plan (11/21/2021 4:37 AM CDT): Stable cont xarelto Assessment & Plan (05/19/2021 5:42 AM ACID PUMP OPERATOR): New Order xarelto Carotid artery disease 05/19/2021 Assessment & Plan (03/20/2024 9:11 PM CDT): Chronic Stable Cont Xarelto Assessment & Plan (09/22/2023 9:13 AM CDT): Chronic Stable Cont xarelto Assessment & Plan (05/19/2021 5:43 AM ACID PUMP OPERATOR): New Order Xarelto Cervical spinal stenosis 05/19/2021 Assessment & Plan (12/28/2021 11:16 AM CDT): Stable Cont gabapentin, percocet prn Assessment & Plan (11/21/2021 4:32 AM CDT): Chronic Follow up with neurosurgery Cont percocet PRN Assessment & Plan (08/06/2021 3:06 PM ACID PUMP OPERATOR): Persistent pain Order percocet Refer to neurosurgery Assessment & Plan (05/19/2021 5:42 AM ACID PUMP OPERATOR): perisistent symptoms Chronic pain of right knee 05/12/2021 Assessment & Plan (12/28/2021 11:17 AM CDT): Stable Cont percocet prn Assessment & Plan (11/21/2021 4:31 AM CDT): Chronic Follow up with ortho Cont percocet PRN Assessment & Plan (08/06/2021 3:06 PM ACID PUMP OPERATOR): Worsening pain Order percocet Refer to ortho Assessment & Plan (06/23/2021 5:28 AM ACID PUMP OPERATOR): Not improved Order MRI right knee Assessment & Plan (05/19/2021 5:41 AM ACID PUMP OPERATOR): Worsening Order xrar Order norco Refer to pt Thyroid mass 05/12/2021 Assessment & Plan (06/23/2021 5:28 AM ACID PUMP OPERATOR): New Referrer to general surgery Assessment & Plan (05/19/2021 5:41 AM ACID PUMP OPERATOR): New Order thyroid ultrasound Left arm weakness 05/03/2021 Numbness and tingling in left arm 05/03/2021 Chest pain 12/23/2020 Assessment & Plan (12/23/2020 11:31 AM CDT): The patient will be scheduled for left heart catheterization, with coronary angiogram, and possible PTCA/Stent. The procedure was discussed with the patient, and risks, benefits, and alternative options were explained. The patient was given information about heart catheterization and interventional procedures. The patient agrees to proceed. Encounter for Medicare annual wellness exam 10/03 Assessment & Plan (09/18/2024 12:54 PM CDT): Patient here for annual Medicare wellness visit and for review of complete medical problem list. All the elements of the plan were completed as outlined by CMS. A copy of the prevention plan was given to the patient. I reviewed Medicare Wellness Questionnaire (other physicians involved in care, depression screen, advanced directives), cognitive/memory, and functional assessment. I reviewed and updated the complete problem list, medication list, family history, and immunization records with the patient. I provided preventive counseling and early detection interventions to the patient through health maintenance update and summary of today's office visit. Assessment & Plan (09/22/2023 9:14 AM CDT): Patient here for annual Medicare wellness visit and for review of complete medical problem list. All the elements of the plan were completed as outlined by CMS. A copy of the prevention plan was given to the patient. I reviewed Medicare Wellness Questionnaire (other physicians involved in care, depression screen, advanced directives), cognitive/memory, and functional assessment. I reviewed and updated the complete problem list, medication list, family history, and immunization records with the patient. I provided preventive counseling and early detection interventions to the patient through health maintenance update and summary of today's office visit. Assessment & Plan (07/30/2022 4:33 AM ACID PUMP OPERATOR): Patient here for annual Medicare wellness visit and for review of complete medical problem list. All the elements of the plan were completed as outlined by CMS. A copy of the prevention plan was given to the patient. I reviewed Medicare Wellness Questionnaire (other physicians involved in care, depression screen, advanced directives), cognitive/memory, and functional assessment. I reviewed and updated the complete problem list, medication list, family history, and immunization records with the patient. I provided preventive counseling and early detection interventions to the patient through health maintenance update and summary of today's office visit. stable Assessment & Plan (10/17/2020 5:41 AM CDT): Patient here for annual Medicare wellness visit and for review of complete medical problem list. All the elements of the plan were completed as outlined by CMS. A copy of the prevention plan was given to the patient. I reviewed Medicare Wellness Questionnaire (other physicians involved in care, depression screen, advanced directives), cognitive/memory, and functional assessment. I reviewed and updated the complete problem list, medication list, family history, and immunization records with the patient. I provided preventive counseling and early detection interventions to the patient through health maintenance update and summary of today's office visit. Post-menopausal 10/17/2020 Exposure to silica 09/23/2020 Morbid obesity with BMI of 40.0-44.9, adult 09/03 Assessment & Plan (09/22/2023 9:13 AM CDT): BMI Follow-up includes: nutrition counseling and exercise counseling. Assessment & Plan (04/24/2022 4:55 AM CDT): BMI Follow-up includes: nutrition counseling and exercise counseling. Primary osteoarthritis of left hand 07/01/2020 Right wrist pain 06/05/2020 Assessment & Plan (07/30/2022 4:35 AM ACID PUMP OPERATOR): May try wrist brace Screening for colon cancer 05/13/2020 Left hand pain 05/08/2020 Assessment & Plan (05/13/2020 5:02 AM ACID PUMP OPERATOR): New Check RA level Start celebrex Encounter for screening mamm ogram for malignant neoplasm of breast 05/08/2020 Controlled type 2 diabetes m taeitus without complication, without long-term current use of insulin 01/15/2020 Assessment & Plan (03/20/2024 9:15 PM CDT): Chronic Stable Cont synjardy Goal: hgba1c<6.5 Assessment & Plan (12/12/2023 3:01 PM CDT): Chronic Stable Cont synjardy Goal: hgba1c<6.5 Assessment & Plan (09/22/2023 9:13 AM CDT): Chronic Stable Cont synjardy Goal: hgba1c<6.5 Assessment & Plan (11/25/2022 4:57 AM CDT): Chronic Stable Cont synjardy Goal: hgba1c<6.5 Assessment & Plan (07/30/2022 4:34 AM ACID PUMP OPERATOR): Worsened Change to synjardy 5/1000mg daily Goal: Hgba1c<6.5 Assessment & Plan (04/24/2022 4:55 AM CDT): Uncontrolled Change glucophage to synardy Goal: Hgba1c<6.5 Assessment & Plan (12/28/2021 11:13 AM CDT): Stable Cont glucophage Goal: Hgba1c<6.5 Assessment & Plan (11/21/2021 4:30 AM CDT): Stable Cont glucophage Goal: Hgba1c<6.5 Assessment & Plan (10/21/2021 12:02 PM CDT): No retinopathy either eye; pt ed BG control Assessment & Plan (08/06/2021 3:06 PM ACID PUMP OPERATOR): Stable Cont glucophage Goal: Hgba1c<6.5 Assessment & Plan (06/23/2021 5:27 AM ACID PUMP OPERATOR): Stable Cont glucophage Goal: Hgba1c<6.5 Assessment & Plan (10/17/2020 5:40 AM CDT): Stable Cont metformin Assessment & Plan (05/13/2020 5:02 AM ACID PUMP OPERATOR): Stable Cont metformin Assessment & Plan (02/08/2020 3:55 PM CDT): Stable Diet controlled Cough 01/15/2020 Assessment & Plan (02/08/2020 3:55 PM CDT): New Order covid test Dyslipidemia 09/16/2019 Assessment & Plan (02/07/2025 10:41 AM CDT): Chronic Stable No labs drawn before appointment Patient instructed to draw blood before next appointment Diet control Goal: TC<200, LDL<100, TG<150 Assessment & Plan (03/20/2024 9:30 PM CDT): Chronic Stable Diet control Goal: TC<200, LDL<100, TG<150 Assessment & Plan (12/12/2023 3:01 PM CDT): Chronic Stable Cont crestor Goal: TC<200, LDL<100, TG<150 Assessment & Plan (09/22/2023 9:14 AM CDT): Chronic Stable Cont crestor Goal: TC<200, LDL<100, TG<150 Assessment & Plan (11/25/2022 4:57 AM CDT): Chronic Stable Cont crestor Goal: TC<200, LDL<100, TG<150 Assessment & Plan (07/30/2022 4:33 AM ACID PUMP OPERATOR): Chronic Stable Cont lipitor Goal: TC<200, LDL<100, TG<150 Assessment & Plan (04/24/2022 4:54 AM CDT): Stable Cont lipitor Goal: TC<200, LDL<100, TG<150 Assessment & Plan (12/28/2021 11:12 AM CDT): Stable Cont lipitor Goal: TC<200, LDL<100, TG<150 Assessment & Plan (11/21/2021 4:30 AM CDT): Stable Cont lipitor Goal: TC<200, LDL<100, TG<150 Assessment & Plan (08/06/2021 3:05 PM ACID PUMP OPERATOR): Stable Cont lipitor Goal: TC<200, LDL<100, TG<150 Assessment & Plan (10/17/2020 5:40 AM CDT): Stable Ordered lab work Cont lipitor Idiopathic sclerosing mesenteritis 09/11/2019 Assessment & Plan (10/14/2019 2:09 PM CDT): New Start augmentin Lymph node enlargement 09/11/2019 Assessment & Plan (10/14/2019 2:09 PM CDT): New Start augmentin Muscular deconditioning 09/08/2019 Irritable bowel syndrome with constipation 08/21 Assessment & Plan (11/06/2024 3:40 PM CDT): Has a history of irritable bowel syndrome and is currently on 290 mcg to help with his complaints of constipation. She states that with the administration of the higher dose that she is currently having soft formed stools daily. No reports of blood in her stool. Does have a prescription for dicyclomine but is currently unavailable due to shortage at pharmacy. States that with out her medication she is having mild cramping in her abdominal area that can come and go. PCP did order CT scan that was currently performed but however report is not available at this time. -We will await report from CT scan -Recommended her starting [id number] probiotic like align or [employer]. -Also recommended ib guard [id number] to help with her complaints of abdominal discomfort -May take dicyclomine when available PRN to help with complaints of abdominal discomfort Assessment & Plan (11/25/2022 5:04 AM CDT): Chronic Stable Cont bentyl Assessment & Plan (07/30/2022 4:35 AM ACID PUMP OPERATOR): Chronic Cont bentyl Assessment & Plan (12/28/2021 11:13 AM CDT): Stable Cont bentyl Assessment & Plan (05/13/2020 5:00 AM ACID PUMP OPERATOR): Stable Cont bentyl Assessment & Plan (02/08/2020 3:56 PM CDT): Stable Cont bentyl Assessment & Plan (08/28/2019 12:25 PM ACID PUMP OPERATOR): Uncontrolled Cont bentyl Gastroesophageal reflux disease 08/21/2019 Assessment & Plan (11/25/2022 5:02 AM CDT): Chronic Stable Cont nexium Assessment & Plan (07/30/2022 4:34 AM ACID PUMP OPERATOR): Chronic Cont nexium Assessment & Plan (08/21/2019 2:51 PM ACID PUMP OPERATOR): Stable Cont Nexium Chronic constipation 08/21/2019 Assessment & Plan (12/10/2024 5:15 PM CDT): Chronic Stable Cont colace, linzess Assessment & Plan (03/20/2024 9:07 PM CDT): Chronic Stable Cont linzess Assessment & Plan (09/22/2023 9:12 AM CDT): Chronic Stable Cont linzess Assessment & Plan (11/25/2022 5:04 AM CDT): Chronic Stable Cont linzess Assessment & Plan (07/30/2022 4:35 AM ACID PUMP OPERATOR): Chronic Cont colace Assessment & Plan (04/24/2022 4:56 AM CDT): Stable Cont xartelto Assessment & Plan (12/28/2021 11:13 AM CDT): Stable Cont linzess Assessment & Plan (11/21/2021 4:31 AM CDT): Stable Cont linzess Assessment & Plan (10/17/2020 5:40 AM CDT): Stable Cont linzess Assessment & Plan (02/08/2020 3:54 PM CDT): Stable Cont linzess Assessment & Plan (10/14/2019 2:08 PM CDT): Stable Cont linzess Assessment & Plan (08/28/2019 12:25 PM ACID PUMP OPERATOR): Stable Cont linzess Hypertension, essential 08/21/2019 Assessment & Plan (03/20/2024 9:35 PM CDT): Chronic Stable Cont losartan, toprol Goal: SBP<140, DBP<90 Assessment & Plan (12/12/2023 3:00 PM CDT): Chronic Stable Cont losartan, toprol Goal: SBP<140, DBP<90 Assessment & Plan (09/22/2023 9:13 AM CDT): Chronic Stable Cont cozaar, toprol Goal: SBP<140, DBP<90 Assessment & Plan (11/25/2022 4:56 AM CDT): Chronic Stable Cont amlodipine, toprol, losartan Goal: SBP<140, DBP<90 Assessment & Plan (07/30/2022 4:32 AM ACID PUMP OPERATOR): Chronic Stable Cont losartan, toprol Goal: SBP<140, DBP<90 Assessment & Plan (04/24/2022 4:54 AM CDT): Stable Cont norvasc, losartan, toprol Goal: SBP<140, DBP<90 Assessment & Plan (12/28/2021 11:12 AM CDT): Stable Cont norvasc, losartan, toprol Goal: SBP<140, DBP<90 Assessment & Plan (11/21/2021 4:30 AM CDT): Stable Cont norvasc, losartan Goal: SBP<140, DBP<90 Assessment & Plan (08/06/2021 3:05 PM ACID PUMP OPERATOR): Stable Cont norvasc, losartan Goal: SBP<140, DBP<90 Assessment & Plan (10/17/2020 5:39 AM CDT): Stable Cont to monitor BP at home Cont cozaar Assessment & Plan (05/13/2020 5:01 AM ACID PUMP OPERATOR): Stable Cont to monitor BP at home Cont cozaar Assessment & Plan (02/08/2020 3:54 PM CDT): Stable Cont to monitor BP at home Cont cozaar Assessment & Plan (08/28/2019 12:26 PM ACID PUMP OPERATOR): Stable Cont to monitor BP at home Cont cozaar Bilateral lower extremity edema 08/21/2019 Assessment & Plan (12/10/2024 5:14 PM CDT): Chronic Stable Cont lasix Assessment & Plan (03/20/2024 9:06 PM CDT): Chronic Stable Cont lasix Assessment & Plan (12/12/2023 3:00 PM CDT): Chronic Stable Cont lasix Assessment & Plan (09/22/2023 9:12 AM CDT): Chronic Stable Cont lasix Assessment & Plan (11/25/2022 5:03 AM CDT): Chronic Stable Cont lasix Assessment & Plan (07/30/2022 4:36 AM ACID PUMP OPERATOR): Chronic Cont lasix Assessment & Plan (04/24/2022 4:56 AM CDT): Stable Cont lasix Assessment & Plan (12/28/2021 11:13 AM CDT): Stable Cont lasix Assessment & Plan (11/21/2021 4:36 AM CDT): Stable Cont lasix Assessment & Plan (02/08/2020 3:55 PM CDT): Stable Cont Lasix Assessment & Plan (08/21/2019 2:50 PM ACID PUMP OPERATOR): Stable Cont Lasix Decreased diffusion capacity 03/17/2019 Pulmonary scarring 03/17/2019 H/O exposure to dust 03/17/2019 Periodic limb movement 03/17/2019 Chronic obstructive pulmonary disease 12/09/2018 Nonsmoker 12/09/2018 Pseudophakia of both eyes 11/25/2018 Assessment & Plan (10/21/2021 12:03 PM CDT): Clear and centered both eyes (OU); follow Chronic allergic conjunctivitis 10/17/2018 Nonrheumatic pulmonary valve insufficiency 07/24 Obstructive sleep apnea 07/21/2018 Overview (12/07/2018): Overnight pulse oximeter study on the patient while she is using CPAP at night showed nocturnal hypoxemia. Patient is having trouble with the humidifier on CPAP. We will order new CPAP machine at 15 cm water with new supplies and Cflex 3 cm of water. Psychophysiological insomnia 07/21/2018 Overview (12/07/2018): She was advised about sleep hygiene. History of Descemet membrane endothelial keratoplasty (DMEK) 07/12/2018 Overview (07/12/2018): High intraocular pressure (IOP) on day 0 - seen by resident and given Diamox and intraocular pressure (IOP) drops (gtts). Seen today and expressed gas bubble to approx 50% remaining in chamber. Then laid patient supine to alter position of air bubble and deepen chamber. Doing better. intraocular pressure (IOP) improved to 28. Restart Timolol BID. Topical corticosteroid and antibiotics were initiated in the postoperative eye. -Start Prednisolone Q2 and MoxifloxacinQID, written instructions provided. Eye Shield qHS Advised of the signs and symptoms of problems related to recent surgery, such as graft detachment, graft rejection, retinal detachment, endophthalmitis, change in vision, pain or purulent discharge, and advised to call the office or on-call physician at any time of day or night with questions or concerns. Pt instructed to avoid heavy lifting, straining, bending over at waist. Pt verbally indicated that she understood the plan and restrictions. The patient will be scheduled for another follow-up visit in approximately 1 week. 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 Continue daily FML Assessment & Plan (10/21/2021 12:01 PM CDT): intraocular pressure (IOP) stable today on Timoptic ocudose BID both eyes (OU) -OCT RNFL normal; small optic disc -CPM (jovanni be on FML fpc) Assessment & Plan (03/01/2018 8:35 PM CDT): JACKY allergy. Also appears to have alphagan allergy. Would consider starting preservative free cosopt if intraocular pressure (IOP) remains uncontrolled. Check Garcia visual field (HVF) in future. Travatan Z not covered at present. Will consider prior auth next Epiphora 09/11/2010 Fuchs' corneal dystrophy 09/11/2010 Overview (02/28/2018): Status post (s/p) DSEK x2 right eye (OD), 02/2011 Assessment & Plan (10/21/2021 12:03 PM CDT): Sp DSEK right eye (OD) X 2 02/2011; sp DMEK left eye (OS) -right eye (OD) today with stable fold but now with new endo folds and decreased vision; concern for graft rejection -will increase FML to TID right eye (OD); cont every day (QD) left eye (OS) -schedule with Dr. Lees in the next two weeks (pt can only go [facility]) Assessment & Plan (06/21/2018 9:15 PM ACID PUMP OPERATOR): Plan for DMEK left eye (OS). Advised of the signs and symptoms of problems related to surgery, such as retinal detachment, endophthalmitis, change in vision, pain or purulent discharge, corneal graft rejection/failure/detachment, need for repeat procedures, glaucoma, high eye pressure, lens dislocation, redness, bleeding, loss of vision, loss of eye, and advised to call the office or on-call physician at any time of day or night with questions or concerns. Pt instructed to avoid heavy lifting, straining, bending over at waist after surgery and need to lie flat on back for DMEK surgery. Pt verbally indicated understanding. Plan for subtenon's, not retrobulbar, and Van lindt Assessment & Plan (05/10/2018 8:07 PM ACID PUMP OPERATOR): Rec DMEK left eye (OS). R/b/a/c d/w pt and she agrees to plan. Advised of the signs and symptoms of problems related to surgery, such as retinal detachment, endophthalmitis, change in vision, pain or purulent discharge, corneal graft rejection/failure/detachment, need for repeat procedures, glaucoma, high eye pressure, lens dislocation, redness, bleeding, loss of vision, loss of eye, and advised to call the office or on-call physician at any time of day or night with questions or concerns. Pt instructed to avoid heavy lifting, straining, bending over at waist after surgery and need to lie flat on back for DMEK surgery. Pt verbally indicated understanding. Will call to gauge interest in surgery Assessment & Plan (03/01/2018 8:35 PM CDT): Visually significant left eye (OS) - Rec DMEK left eye (OS). Pt to reconsider at next appt Resolved Problems Problem Noted Date Diagnosed Date Resolved Date Trigger middle finger of right hand 06/12/2020 05/03/2021 Encounter for immunization 05/13/2020 1 Ingrown toenail of right foot 05/08/2020 05/03/2021 Assessment & Plan (05/13/2020 5:02 AM ACID PUMP OPERATOR): Recurrent Refer to podiatry Ingrown toenail of right foot with infection 0 05/03/2021 Assessment & Plan (02/08/2020 3:55 PM CDT): New Start cefdinir See trauma counsellor Jn burdick 08/21/2019 Assessment & Plan (05/13/2020 5:00 AM ACID PUMP OPERATOR): Stable Ordered lab work Cont lipitor Assessment & Plan (02/08/2020 3:54 PM CDT): Stable Ordered lab work Cont lipitor Assessment & Plan (08/28/2019 12:25 PM ACID PUMP OPERATOR): Stable Ordered lab work Cont lipitor RLQ abdominal pain 08/21/2019 Assessment & Plan (10/14/2019 2:02 PM CDT): Possibly secondary to mesenteritis Start augmentin Assessment & Plan (08/21/2019 2:52 PM ACID PUMP OPERATOR): New Ordered CT of Pelvis W/WO contrast Hyperglycemia 08/21/2019 05/03/2021 Assessment & Plan (08/21/2019 2:52 PM ACID PUMP OPERATOR): Ordered lab work Exercise hypoxemia 03/17/2019 1 Shortness of breath 12/09/2018 05/03/20 21 Bilateral posterior capsular opacification 07/26/2018 11/16/2019 Overview (07/26/2018): Plan YAG caps in 2 months Elevated IOP, left 07/12/2018 1 Assessment & Plan (07/12/2018 4:15 AM ACID PUMP OPERATOR): Post-operative IOP spike, POD1 DMEK OS. -- the air bubble appears retained in the AC, so this is unlikely due to pupillary block from a posterior chamber air bubble -- may be secondary to large bubble vs blocked PI (none was visible on exam, but the view may have been obstructed due to iris positioning) -- IOP 68 on presentation -- initial medical management with 3 rounds of max gtts in office, along with 500 mg of diamox given between 3 AM and 4 AM -- IOP improved to 46 -- may require burping the wound to remove a portion of the air bubble, or LPI if there is sufficient visibility -- will defer any further medical or surgical management to Dr. Lees, the pt is following up with him in a few hours -- pt seen with Dr. Gupta and plan of care discussed with Dr. Morris Encounters Date Type Department Care Team Description 05/01/2025 Results Follow-Up [facility] [address] [place] [id number] Lakisha Monson MA MRI Internal Auditory Canal Brain W WO Contrast 04/27/2025 1:00 PM CDT - 04/27/2025 11:59 PM CDT Hospital Encounter [facility] [address] [place] [address] Postural dizziness Discharge Disposition: Discharge to home or self care 04/17/2025 Results Follow-Up [facility] [address] [place] [address] [address] [place] [address] Cassie Morales MD SCAN - LABS 03/30/2025 Telephone [facility] [address] [place] [address] [address] [place] [address] Cassie Morales MD Medical Question/Miscellane ous 03/07/[address] [place] [phone] Cassie Morales MD Medical Question/Miscellane ous 03/02/2025 10:45 AM CDT - 03/02/2025 11:50 AM CDT Surgery [facility] OR [address] [place] [id number] Robert Snyder IV, MD RECTAL EXAM UNDER ANESTHESIA WITH RUBBER BAND LIGATION OF HEMORRHOIDS 03/02/2025 10:35 AM CDT Anesthesia Event [facility] OR [address] [place] [phone] Williams Alvarez MD Morris, Mark C., MD 03/02/2025 7:54 AM CDT - 03/02/2025 2:48 PM CDT Hospital Encounter [facility] OR [address] [place] [id number] Robert Snyder IV, MD Discharge Disposition: Discharge to home or self care 03/02/[address] [place] [phone] Cassie Morales MD 02/21/[address] [place] [phone] Cassie Morales MD Medical Question/Miscellane ous 02/20/2025 Orders Only [facility] Pre Admit Testing [address] [place] [address] [phone] Glenny Webb RN Preop testing (Primary Dx); Type 2 diabetes mellitus without complication, without long-term current use of insulin (HCC) 02/20/[address] [place] [phone] Cassie Morales MD Forms Request 02/07/2025 10:30 AM CDT Office Visit [address] [place] [phone] Fidelina Zamora NP Hypertension, essential (Primary Dx); Dyslipidemia; Controlled type 2 diabetes mellitus without complication, without long-term current use of insulin; Morbid obesity with BMI of 40.0-44.9, adult (HCC); Vertigo; Fuchs' corneal dystrophy of both eyes; Other hemorrhoids 02/07/2025 Telephone [facility] [address] [facility] [address] [place] [address] Cassie Morales MD from Last 3 Months Immunizations Immunization Administration Dates Next Due Influenza, Quadrivalent, Hig h Dose, Preservative Free, Intrr 05/12/2023,04/20/2022 Influenza, Quadrivalent, Rec ombinant, Egg Free, Preservative Free, Intramuscular 05/08/2020 Influenza, Quadrivalent, Spl it, Preservative Free, Intramuscular 05/23/2019,04/09/2018,05/31/2017 Influenza, Trivalent, Preser vative Free, Intramuscular 04/18/2013 Influenza, Unspecified 04/04/2024(Deferr ed: Patient Refused),09/22/2023(Deferred: Patient Refused),05/05/2019 [email or web address] (J&J) SARS-CoV-2 Vaccination 09/15/2020 [employer] SARS-CoV-2 Monovalent Vaccination (12+ Yrs) PURPLE 11/25/2021 Pneumococcal Conjugate PCV 13 04/04/2020 Pneumococcal Conjugate Pcv20 03/11/2022 Pneumococcal Polysaccharide PPV23 09/19/2015 Td, Unspecified 03/11/2022 Td, adsorbed 03/11/2022 Tdap 01/11/2012 ZOSTER LIVE 10/24/2015 ZOSTER Recombinant 10/24/2015 Surgical History Surgery Date Site/Laterality Comments KNEE ARTHROSCOPY Right torn meniscus ANKLE LIGAMENT RECONSTRUCTION Bilateral TONSILLECTOMY as child COLONOSCOPY 07/05/2020 - 07/04/2021 & 2023 CARPAL TUNNEL RELEASE Bilateral EYE SURGERY Right DMEK HYSTERECTOMY 07/05/1985 - 07/04/1986 CARDIAC CATHETERIZATION 12/2020 CATARACT EXTRACTION W/ INTRAOCULAR LENS IMPLANT 07/05/2011 - 07/04/2012 Right PC/IOL EYE SURGERY Left DSEK EYE SURGERY Bilateral Yag Cap CATARACT EXTRACTION W/ INTRAOCULAR LENS IMPLANT 07/05/2012 - 07/04/2013 Left PC/IOL THYROID SURGERY Pt under general anesthesia for a thyroid puncture to see if she had pallops. EYE SURGERY 07/05/1999 - 07/04/2000 Left tear duct surgery Medical History Medical History Date Comments Hypertension Irritable bowel syndrome Glaucoma Pulmonic valve regurgitation 07/24/2018 Sleep apnea wears CPAP night ly Delayed emergence from gener al anesthesia pt reports she is slow to wa ke up and stopped breathing with last colonoscopy, was able to be discharged after procedure. Chest pain last episode 1st week of January 2022/sees Dr. 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 History of shingles about 2009 Allergic rhinitis Wears glasses History of diverticulitis Arthritis torn meniscus ri ght knee DDD (degenerative disc disease), lumbar and cervical Carpal tunnel syndrome left GERD (gastroesophageal reflux disease) Dyslipidemia Fuchs' corneal dystrophy Rheumatoid arthritis (HCC) Lupus Motion sickness Osteoarthritis SOB (shortness of breath) on exertion Headache h/o migraines Thyroid mass Atrial fibrillation (HCC) Walker as ambulation aid Falls frequently patient reporte d frequent falls, most recent 02/14/2025-plans to move to assisted living Family History Medical History Relation Name Comments Cancer Brother 1 Heart attack Brother 1 Asthma Brother 2 sofia flood Atrial fibrillation Brother 3 Diabetes Brother 3 Obesity Brother 3 Crohn's disease Daughter 1 No Known Problems Daughter 2 Alzheimer's disease Father sofia flood Arthritis Father sofia flood Cancer Father sofia flood Dementia Father sofia flood Diabetes Father sofia flood Heart disease Father sofia flood Parkinsonism Father sofia flood Arthritis Mother sofia flood Blood Clot Mother sofia flood Cancer Mother sofia flood Diabetes Mother sofia flood Gout Mother sofia flood Heart disease Mother sofia flood Hypertension Mother sofia flood Lung disease Mother sofia flood Cancer Sister sofia flood Kidney disease Sister sofia flood No Known Problems Son Relation Name Status Comments Brother 1 Brother 2 sofia flood Alive Brother 3 Alive Daughter 1 Alive Daughter 2 Alive Father sofia flood Mother sofia flood Sister sofia flood Alive Son Alive Social History Tobacco Use Types Packs/Day Years Used Date Smoking Tobacco: Never Passive Smoke Exposure: Past Smokeless Tobacco: Never Tobacco Cessation:Counseling Given: Not Answered Passive Exposure Comments:as a child Alcohol Use Standard Drinks/Week Comments Never 0 (1 standard drink = 0.6 oz pur e alcohol) [facility] Utilities Answer Date Recorded In the past 12 months has th e electric, gas, oil, or water company [...] often do you attend chur ch or jewish services? 1 to 4 times per year 10/16/2024 Do you belong to any clubs o r organizations such as islam groups, unions, fraternal or athletic groups, or [...] any time in the past 12 m [facility], were you homeless or living in a detention (including now)? No 10/16/2024 AUDIT-C Answer Date [...] on file Legal Sex Female 3:36 AM ACID PUMP OPERATOR Gender Identity Female 12/01/2023 8:05 AM CDT Sexual Orientation Not on file Occupation Industry Job Start Date Job End Date retired Not on file Not on file Not on file Obstetrics History Para Term AB IAB SAB Ectopic Multiple Livin g Live Births 3 3 3 Date Outcome GA Total Labor Labor/2nd/3rd Weight Sex Type Anes PTL Lea A1 A5 Name Clin Term Term Term Last Filed Vital Signs Vital Sign Reading Time Taken Comments Blood Pressure 117/76 03/02/2025 1:55 PM CDT Pulse 75 03/02/2025 1:55 PM CDT Temperature 36.2 C (97.1 F) 03/02/2025 11:25 AM CDT Respiratory Rate 16 03/02/2025 11:4 0 AM CDT Oxygen Saturation 95% 03/02/2025 1:55 PM CDT Inhaled Oxygen Concentration - - Weight 110.8 kg (244 lb 3.2 oz) 03/02/2025 8:05 AM CDT Height 165.1 cm (5' 5) 03/02/2025 8:05 AM CDT Body Mass Index 40.64 03/02/2025 8:05 AM CDT Plan of Treatment Health Maintenance Due Date Last Done Comments Hepatitis B Screening 1973 Zoster Vaccine (2 of 2) 12/19/2015 10/24/2015, 10/23 Foot Exam 12/18/2022 12/18/2021 Breast Cancer Screening-Mammogram 11/16/2024 024, 04/24/2021 Covid-19 Vaccine (4 - 2024-2 6 season) 2025 11/25/2021, 11/25/2021, 09/15/2020 Influenza Vaccine (#1) 2025 , 04/20/2022, 05/08/2020, Additional history exists Hemoglobin A1C 03/16/2025 09/13/2024, 09/0 09/2023, 11/24/2023, Additional history exists Osteoporosis Screening-Bone Density Scan 06/23/2025 06/23/2023, 04/24/2021 Albumin Creatinine Ratio, Urine 09/13/2025 09/13/2024, 03/07/2024, 07/15/2022 Lipid Panel 09/13/2025 09/13/2024, 11/03, 07/15/2022, Additional history exists Well Visit 65+ 09/18/2025 09/18/2024, 09/02, 07/22/2022, Additional history exists Dilated Eye Exam 12/18/2025 12/18/2024, 03/2024, 10/20/2021, Additional history exists eGFR 12/21/2025 12/21/2024, 10/04, 10/16/2024, Additional history exists Depression Screening 02/07/2026 02/07/2025, 02/07/2025, 10/31/2024, Additional history exists Fall Risk Assessment 03/02/2026 03/02/2025, 10/31/2024, 09/18/2024, Additional history exists Colon Cancer Screening-Colonoscopy 11/27/2026 11/28/2023, 04/17/2021 DTaP/Tdap/Td Vaccine (4 - Td or Tdap) 03/11/2032 03/11/2022, 03/11/2022, 01/11/2012 Pneumococcal vaccine 65+ Completed 022, 04/04/2020, 09/19/2015 Hepatitis C Screening Completed 06/15/2023 Colon Cancer Screening-CT Colonography Discontinued 11/28/2023, 04/17/2021 Colon Cancer Screening-DNA Stool Discontinued 11/28/19 24, 04/17/2021 Colon Cancer Screening-FIT Discontinued 11/28/2023, Colon Cancer Screening-Sigmoidoscopy Discontinued 11/28/2023, 04/17/2021 Medical Devices Implanted Type Area Boat Cleaning Supervisor Device Identifier Shelf Expiration Date Model / Serial / Lot Cornea Implanted:Qty: 1 on 07/11/2018 by Lorenzo Lees MD at [facility] Other 07/21/2018 / [id number] / Description:Cornea Gen Procedures Procedure Name Priority Date/Time Associated Diagnosis Comments MRI INTERNAL AUDITORY CANAL INCL BRAIN W WO CONTRAST Schedule Routine, Read Routine (OP Routine) 04/27/2025 2:41 PM CDT Postural dizziness HEMORRHOIDECTOMY 03/02/2025 10:34 AM CDT HEMORRHOIDS POC BLOOD GAS AND CHEMISTRIES, VENOUS Routine 03/02/2025 8:34 AM CDT EGFR Routine 12/21/2024 2:19 PM CDT DIABETIC EYE EXAM Routine 12/18/2024 HEMOGLOBIN A1C Routine 09/13/2024 10:05 AM CDT Controlled type 2 diabetes mellitus without complication, without long-term current use of insulin (HCC) Dyslipidemia Hyperuricemia LIPID PANEL Routine 09/13/2024 10:05 AM CDT Controlled type 2 diabetes mellitus without complication, without long-term current use of insulin (HCC) Dyslipidemia Hyperuricemia ALBUMIN CREATININE RATIO, URINE Routine 09/13/2024 9:58 AM CDT Controlled type 2 diabetes mellitus without complication, without long-term current use of insulin (HCC) Dyslipidemia Hyperuricemia COLONOSCOPY 11/28/2023 11:15 AM CDT SCREENING MAMMOGRAM BILATERAL W ROBINSON Schedule Routine, Read Routine (OP Routine) 11/17/2023 10:00 AM CDT Encounter for screening mammogram for malignant neoplasm of breast DEXA AXIAL SKELETON BONE DENSITY 1 OR MORE SITES Schedule Routine, Read Routine (OP Routine) 06/23/2023 1:45 PM ACID PUMP OPERATOR Postmenopausal HEPATITIS C ANTIBODY Routine 06/15/2023 11:10 AM ACID PUMP OPERATOR from Last 3 Months or Most Recently Relevant to Health Maintenance Results * MRI Internal Auditory Canal Brain W WO Contrast (04/27/2025 2:41 PM CDT) Anatomical Region Laterality Modality Head and Neck N/A Magnetic Resonan ce 04/27/2025 3:24 PM CDT Impressions 04/27/2025 3:24 PM CDT Essentially unremarkable exam. No CP angle mass or enhancing abnormality of either IAC. No acute intracranial abnormality. No acute infarction or chronic infarct identified. Few scattered foci of T2 hyperintensity within the periventricular and subcortical white matter bilaterally. Findings are nonspecific but are probably microvascular related. Slightly asymmetric appearance of the flow void of left cavernous carotid artery. Hypoplastic distal right vertebral artery. Consider further evaluation with either CTA or MR a of the head and neck.. Electronically signed by: Skyla Modi M.D. Narrative 04/27/2025 3:24 PM CDT EXAMINATION: Magnetic resonance imaging (MRI) of the brain and brainstem without and with contrast HISTORY: Postural dizziness. Vertigo. Sensorineural hearing loss. Unsteady gait with dizziness. History of falls since July. TECHNIQUE: Multiplanar multi-weighted MRI of the brain and brainstem was performed without and with intravenous contrast using the general brain protocol. Additionally sequences detailing the internal auditory canals and posterior fossa were acquired as a part of the internal auditory canal protocol. Contrast information: Contrast was given. COMPARISON: Comparison 05/04/2021. FINDINGS: The cerebellopontine angles are normal, with no evidence of extra-axial mass or aneurysm. The VII/VIII nerve complexes appear normal. The upper cervical spinal cord and spine are normal. There is no abnormal contrast enhancement. The scalp and calvarium are normal. The superior sagittal sinus demonstrates normal venous flow. The corpus callosum is normal in shape and signal intensity. The posterior fossa is unremarkable. The pituitary and sella are normal. The brainstem and craniocervical junction are unremarkable. Diffusion weighted images reveal no hyperintensities to suggest acute cerebral infarction. The susceptibility weighted sequences reveal no evidence of acute or chronic hemorrhage. The ventricles are normal in size and position without evidence of hydrocephalus. There is a mild degree of ventricular and sulcal prominence suggesting mild cerebral volume loss. There are scattered foci of T2 hyperintensity evident within periventricular and subcortical white matter bilaterally. Changes are relatively mild but are overall nonspecific. Findings could be microvascular related however correlation with clinical factors is recommended. The paranasal sinuses are normal. Mastoid air cells appear normally pneumatized without fluid opacification.The visualized portions of the mastoids are unremarkable. Incidental asymmetric aeration of left petrous apex. No findings to indicate an inflammatory process.. The orbits appear normal. There is a slightly abnormal appearance of the flow void within the left distal cavernous ICA possibly indicating stenosis. Hypoplastic distal right vertebral artery. Consider head and neck MRA or possibly CTA to further evaluate. Otherwise, normal flow voids are demonstrated in the included carotid arteries and basilar artery. Procedure Note Skyla Modi MD - 04/27/2025 EXAMINATION: Magnetic resonance imaging (MRI) of the brain and brainstem without and with contrast HISTORY: Postural dizziness. Vertigo. Sensorineural hearing loss. Unsteady gait with dizziness. History of falls since July. TECHNIQUE: Multiplanar multi-weighted MRI of the brain and brainstem was performed without and with intravenous contrast using the general brain protocol. Additionally sequences detailing the internal auditory canals and posterior fossa were acquired as a part of the internal auditory canal protocol. Contrast information: Contrast was given. COMPARISON: Comparison 05/04/2021. FINDINGS: The cerebellopontine angles are normal, with no evidence of extra-axial mass or aneurysm. The VII/VIII nerve complexes appear normal. The upper cervical spinal cord and spine are normal. There is no abnormal contrast enhancement. The scalp and calvarium are normal. The superior sagittal sinus demonstrates normal venous flow. The corpus callosum is normal in shape and signal intensity. The posterior fossa is unremarkable. The pituitary and sella are normal. The brainstem and craniocervical junction are unremarkable. Diffusion weighted images reveal no hyperintensities to suggest acute cerebral infarction. The susceptibility weighted sequences reveal no evidence of acute or chronic hemorrhage. The ventricles are normal in size and position without evidence of hydrocephalus. There is a mild degree of ventricular and sulcal prominence suggesting mild cerebral volume loss. There are scattered foci of T2 hyperintensity evident within periventricular and subcortical white matter bilaterally. Changes are relatively mild but are overall nonspecific. Findings could be microvascular related however correlation with clinical factors is recommended. The paranasal sinuses are normal. Mastoid air cells appear normally pneumatized without fluid opacification.The visualized portions of the mastoids are unremarkable. Incidental asymmetric aeration of left petrous apex. No findings to indicate an inflammatory process.. The orbits appear normal. There is a slightly abnormal appearance of the flow void within the left distal cavernous ICA possibly indicating stenosis. Hypoplastic distal right vertebral artery. Consider head and neck MRA or possibly CTA to further evaluate. Otherwise, normal flow voids are demonstrated in the included carotid arteries and basilar artery. IMPRESSION: Essentially unremarkable exam. No CP angle mass or enhancing abnormality of either IAC. No acute intracranial abnormality. No acute infarction or chronic infarct identified. Few scattered foci of T2 hyperintensity within the periventricular and subcortical white matter bilaterally. Findings are nonspecific but are probably microvascular related. Slightly asymmetric appearance of the flow void of left cavernous carotid artery. Hypoplastic distal right vertebral artery. Consider further evaluation with either CTA or MR a of the head and neck.. Electronically signed by: Skyla Modi M.D. Jamal Barnard MD IM MRI PROCEDURES Final Result * (ABNORMAL) POC Blood Gas and Chemistries, Venous - (03/02/2025 8:34 AM CDT) pH,anu POC 7.38 7.32 - 7.43 Comment:Testing performed by : [address] [address] pCO2, anu POC 56(H) 40 - 50 mmHg DANIELLE SNYDER Comment:Testing performed by : [address] [address] pO2,anu POC 31 mmHg [facility] Comment: Interpretive Data No reference range established. Current interpretive data was last revised 2020. Testing performed by: [address] [address] HCO3, anu (Calc) POC 34(H) 20 - 30 mmol/L [facility] Comment:Testing performed by : [address] [address] Base excess, anu POC 8 mmol/L [facility] Comment: Interpretive Data No reference range established. Current interpretive data was last revised 2020. Testing performed by: [address], [place]., [address] Hemoglobin, anu POC 14.6 11.9 - 15.5 g/dL [facility] Comment:Testing performed by : [address], [place]., [address] Hematocrit, anu POC 43.0 35.6 - 45.5 % [facility] [facility] Comment:Testing performed by : [address] [address] Sodium, anu POC 141 135 - 145 mmol/L [facility] Comment:Testing performed by : [address] [address] Potassium, anu POC 3.6 3.3 - 4.9 mmol/L [facility] Comment: Interpretive Data This method is not able to assess for hemolysis, which may falsely increase potassium concentrations. If further testing is needed to evaluate this result, consider in-laboratory plasma potassium. Current Interpretive Data was last revised on 2022. Testing performed by: [address] [address] Glucose, anu POC 108 70 - 199 mg/dL [facility] Comment:Testing performed by : [address] [address] Ionized Calcium, anu POC 5.00 4.50 - 5.10 mg/dL [facility] Comment:Testing performed by : [address], [place]., [address] Blood 03/02/2025 8:34 AM CDT 03/02/2025 8:34 AM CDT Robert Snyder IV, MD LAB POCT ORDERABLES - DEVICE Final Result Performing Organization Address [facility] Co de Phone Number DANIELLE [address] [address] * eGFR (12/21/2024 2:19 PM CDT) eGFR 68 >=60 mL/min/1. 73 m2 Comment: Interpretive Data Reference Interval Normal >/= 90 mL/min/1.73m2 Mildly decreased* 60 - 89 mL/min/1.73m2 Mildly to moderately decreased 45 - 59 mL/min/1.73m2 Moderately to severely decreased 30 - 44 mL/min/1.73m2 Severely decreased 15 - 29 mL/min/1.73m2 Kidney Failure < 15 mL/min/1.73m2 *Relative to young adult level Estimated glomerular filtration rate is determined by the 2020 CKD-EPI equation recommended by the National Kidney Foundation (A Unifying Approach to GFR Estimation: Recommendations of the NKF-ASK Task Force on Reassessing the Inclusion of Race in Diagnosing Kidney Disease, JASN 2020). The CKD-EPI equation should not be used for patients with unstable renal function and has not been validated in children and those over 70. Current interpretive data was last reviewed 2021. Blood 12/21/2024 2:19 PM CDT 12/21/2024 2:48 PM CDT Indiana Santo MD LAB BLOOD ORDERABLES Final Res ult Performing Organization Address [facility]/ZIP Co de Phone Number DANIELLE [address] [place] [address] * Diabetic Eye Exam (12/18/2024) Dionisio Noble MD HEALTH MAINTENANCE Final Result * (ABNORMAL) Hemoglobin A1c (09/13/2024 10:05 AM CDT) Hgb A1C 6.3(H) 4.0 - 5.6 % Estimated Average Glucose 134 mg/dL DANIELLE SNYDER Comment: The ADA recommends reporting an estimated Average Glucose (eAG) with all Hemoglobin A1c results using the equation derived from a study of 507 normal and diabetic adults. Minority populations were underrepresented and children were not included. (Diabetes Care 31:1447-0055, 2008). The eAG is not equivalent to a fasting glucose. Blood 09/13/2024 10:0 5 AM CDT 09/13/2024 10:19 AM CDT us Cassie Morales MD LAB BLOOD ORDERABLES Lidya l Result DANIELLE SNYDER [address] [facility] Department [place] [address] * Lipid panel (09/13/2024 10:05 AM CDT) Cholesterol 123 30 - 199 mg/dL Comment: Interpretive Data Ages < or = 19 years Acceptable: <170 mg/dL Borderline high: 170-199 mg/dL High: >or= 200 mg/dL Ages > or = 20 years Desirable: <200 mg/dL Borderline high: 200-239 mg/dL High: >or= 240 mg/dL Literature References: 1. Expert Panel on Integrated Guidelines for Cardiovascular Health and Risk Reduction in Children and Adolescents. Pediatrics 2011;128:S213 2. NCEP Expert Panel. Circulation 2004;110:227 Current Interpretive Data was last revised on 2018. Triglycerides 90 <=149 mg/dL DANIELLE SNYDER Comment: Interpretive Data Ages < or = 9 years Acceptable: <75 mg/dL Borderline high: 75-99 mg/dL High: >or= 100 mg/dL Ages 10 to 20 years Acceptable: <90 mg/dL Borderline high: 90-129 mg/dL High: >or= 130 mg/dL Ages > or = 20 years Desirable: <150 mg/dL Borderline high: 150-199 mg/dL High: 200-499 mg/dL Very high: >or= 499 mg/dL Literature References: 1. Expert Panel on Integrated Guidelines for Cardiovascular Health and Risk Reduction in Children and Adolescents. Pediatrics 2011;128:S213 2. NCEP Expert Panel. Circulation 2004;110:227 Current Interpretive Data was last revised on 2018. HDL 54 >=40 mg/dL DANIELLE Comment: Interpretive Data Ages < or = 19 years Acceptable: >45 mg/dL Borderline low: 40-45 mg/dL Low: <40 mg/dL Ages > or = 20 years Desirable: >or= 60 mg/dL Low: <40 mg/dL Literature References: 1. Expert Panel on Integrated Guidelines for Cardiovascular Health and Risk Reduction in Children and Adolescents. Pediatrics 2011;128:S213 2. NCEP Expert Panel. Circulation 2004;110:227 Current Interpretive Data was last revised on 2018. LDL, calculated 52 <=129 mg/dL DANIELLE Comment: Interpretive Data Ages < or = 19 years Acceptable: <110 mg/dL Borderline high: 110-129 mg/dL High: >or= 130 mg/dL Ages > or = 20 years Optimal: <100 mg/dL Near optimal: 100-129 mg/dL Borderline high: 130-159 mg/dL High: >160 mg/dL Calculated using the Doni LDL-C estimating equation. This equation was implemented on 2024. Prior to this date LDL-C was estimated using the Friedewald equation. Literature References: 1. Expert Panel on Integrated Guidelines for Cardiovascular Health and Risk Reduction in Children and Adolescents. Pediatrics 2011;128:S213 2. NCEP Expert Panel. Circulation 2004;110:227 3. Doni De La Fuente et al. BABAR Cardiol. 2019November 02;5(5):540-548. doi: 10.1001/jamacardio.2020.0013 Current Interpretive Data was last revised on 2024. Non-HDL Cholesterol 69 mg/dL DANIELLE Comment: Interpretive Data Ages < or = 19 years Acceptable: <120 mg/dL Borderline high: 120-144 mg/dL High: >145 mg/dL Ages > or = 20 years When triglycerides are >200 mg/dL, Non-HDL cholesterol is a secondary target of therapy with treatment goals that are 30 mg/dL greater than the LDL cholesterol target. Literature References: 1. Expert Panel on Integrated Guidelines for Cardiovascular Health and Risk Reduction in Children and Adolescents. Pediatrics 2011;128:S213 2. NCEP Expert Panel. Circulation 2004;110:227 Current Interpretive Data was last revised on 2018. Chol/HDL ratio 2 CERNER MH Blood 09/13/2024 10:0 5 AM CDT 09/13/2024 10:19 AM CDT Cassie Morales MD LAB BLOOD ORDERABLES Lidya l Result Performing Organization Address [facility] Phone Number [address] [address] * (ABNORMAL) Albumin Creatinine Ratio, Urine (09/13/2024 9:58 AM CDT) Albumin Ur 50.8 mg/L Comment: Interpretive Data No reference range established. Current interpretive data was last revised 2018. Creatinine Ur 91.2 mg/dL [facility] Comment: Interpretive Data No reference range established. Current interpretive data was last revised 2018. Albumin Creatinine Ratio, Ur 56(H) 1 - 29 mg/g [facility] Urine 09/13/2024 9:58 AM CDT 09/13/2024 10:19 AM CDT Cassie Morales MD LAB URINE ORDERABLES Lidya l Result Performing Organization Address [facility] Phone Number [address] [address] * Colonoscopy (11/28/2023 11:15 AM CDT) Anatomical Region Laterality Modality Other Narrative Procedure Note Naif Pena MD - 11/28/2023 11:15 AM CDT [facility] GI ENDOSCOPY Patient Name: Sofia Flood Procedure Date: 11/28/2023 11:15 AM Date of : 1955 Admit Type: Inpatient Age: 68 Gender: Female Attending MD: Naif Joyce MD Room: [facility] ENDOSCOPY ROOM 06 Note Status: Finalized Procedure: Colonoscopy Indications: Hematochezia Referring MD: Providers: Naif Pena MD Medicines: Monitored Anesthesia Care Complications: No immediate complications. Estimated blood loss:None. Estimated Blood Loss: Estimated blood loss: none. Procedure: Pre-Anesthesia Assessment: - Prior to the procedure, a History and Physicalwas performed, and patient medications and allergieswere reviewed. The patient is competent. The risks and benefits of the procedure and the sedation optionsand risks were discussed with the patient. Allquestions were answered and informed consent was obtained. Patient identification and proposed procedure were verified by the physician, the nurse, the anesthesiologist and the brick mason in theprocedure room. Mental Status Examination: alert andoriented. Airway Examination: normal oropharyngeal airway and neck mobility. Respiratory Examination: clear to auscultation. CV Examination: normal. Prophylactic Antibiotics: The patient does not requireprophylactic antibiotics. Prior Anticoagulants: The patient has taken Xarelto (rivaroxaban). ASA Grade Assessment:III - A patient with severe systemic disease. After reviewing the risks and benefits, the patient was deemed in satisfactory condition to undergo the procedure. The anesthesia plan was to use monitored anesthesia care (MAC). Immediately prior to administration of medications, the patient was re-assessed for adequacy to receive sedatives. The heart rate, respiratory rate, oxygen saturations, blood pressure, adequacy of pulmonary ventilation,and response to care were monitored throughout the procedure. The physical status of the patient was re-assessed after the procedure. The benefits, risks and alternatives of theprocedure and sedation were discussed and informed consentwas obtained. All questions were answered. Please referto the signed informed consent document in the medical record. The scope was passed under direct vision.The CF-H190L colonoscope was introduced through theanus and advanced to the cecum, identified byappendiceal orifice and ileocecal valve. The colonoscopy was performed without difficulty. The patient tolerated the procedure well. The quality of the bowel preparation was evaluated using the BBPS (BostonBowel Preparation Scale) with scores of: Right Colon = 3, Transverse Colon = 3 and Left Colon = 3 (entiremucosa seen well with no residual staining, smallfragments of stool or opaque liquid). The total BBPS score equals 9. The ileocecal valve, appendiceal orifice, and rectum were photographed. Findings: Hemorrhoids were found on perianal exam. A few diverticula were found in the sigmoid colon and transversecolon. Internal hemorrhoids were found during retroflexion. The hemorrhoids were mild. Impression: - Larg external Hemorrhoids found on perianalexam. - Diverticulosis in the sigmoid colon and in the transverse colon. - Internal hemorrhoids. - No specimens collected. Recommendation: - Return patient to the hospital [facility] for ongoingcare. - Continue to monitor for signs of GI bleeding and trend hemoglobin. Transfuse for hemoglobin lessthan 7-8. - Use psyllium to avoid constipation. - Follow up with outpatient GI. May need a referralto colorectal surgery. - Can restart anticoaguation from a GI perspective,as hemoglobin is stable and she has no further GI bleeding. Naif Pena M.D. Naif Pena MD 11/28/2023 11:54:32 AM . Number of Addenda: 0 Note Initiated On: 11/28/2023 11:15 AM Recognized by the [place] [employer] for promoting quality in endoscopy Naif Pena MD ENDOSCOPY PROCEDURE S Final Result * SCREENING MAMMOGRAM BILATERAL W ROBINSON (11/17/2023 10:00 AM CDT) Anatomical Region Laterality Modality Breast Bilateral Mammography Impressions 11/17/2023 10:11 AM CDT BI-RADS ATLAS category (overall): 2 - Benign There is no mammographic evidence of malignancy. A 1 year screening mammogram is recommended. The patient has been or will be contacted. We recommend annual screening mammography for women at average risk of breast cancer beginning at age 40, based on guidelines of the [place] [employer] (ACR Practice Parameter for the Performance of Screening and Diagnostic Mammography) and [place] [employer]nec[employer]. For women with and elevated risk of breast cancer, please refer to the ACR Practice Parameter for specific screening recommendations. The patient will be entered into a reminder system with a target due date of 1 year for her next screening exam. Narrative 11/17/2023 10:11 AM CDT SCREENING MAMMOGRAM BILATERAL W ROBINSON: 11/17/23 The study was acquired using full field digital technology and interpreted from soft copy. 2D digital mammographic views, as well as 3D digital tomosynthesis were performed in the CC and MLO projections. CLINICAL: Encounter for screening mammogram for malignant neoplasm of breast (Mammogram ordered. ) No relevant medical history has been documented for this patient. No known family history of breast cancer. COMPARISONS: 04/24/2021 SCREENING MAMMOGRAM BILATERAL W ROBINSON 01/26/2017 Breast Imaging Screening Outside Reference 11/17/2012 Breast Imaging Screening Outside Reference BREAST TISSUE: The breasts have scattered areas of fibroglandular density. FINDINGS: There are benign calcifications in both breasts, the majority of which are vascular. There is no new suspicious finding in either breast on mammogram. 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 FINDINGS: AP LUMBAR SPINE L1-L4: Total BMD is 1.233 g/cm2 T-score is 1.7 LEFT HIP: Total BMD is 1.065 g/cm2 T-score is 1.0 Femoral neck BMD is 0.945 g/cm2 T-score is 0.9 FRAX: FRAX not reported due to T-scores of hip, femoral neck and/or spine being at or above -1.0 (Normal). IMPRESSION: Normal bone mass. REFERENCE: Bone mineral density: Normal (T-score above or = -1.0) Low bone mass (T-score between -1.0 and -2.5) replaces the previously used term osteopenia Osteoporosis (T-score = or below -2.5) Medical evaluation for secondary causes of low bone mineral density may be appropriate. FRAX is a World Health Organization validated fracture risk assessment tool that calculates a person's 10 year probability of a major osteoporosis related fracture and hip fracture. According to the National Osteoporosis Foundation guidelines, postmenopausal women and men age 50 or older with low bone mass and a 10 year probability of a major osteoporosis related fracture = or greater than 20% or a 10 year probability of a hip fracture = or greater than 3% should be considered for treatment. For further information, including treatment recommendations, please refer to the 2019 ISCD Official Positions (http://www.iscd.org) and the NOF's Clinician's Guide to Prevention and Treatment of Osteoporosis (http://www.nof.org/professionals/clinical-guidelines) THIS IS AN ELECTRONICALLY VERIFIED FINAL REPORT 06/24/2023 4:28 PM - Electronically signed by Juan Luis Parker M.D. MF: [id number] Report ID: [id number] Reading Location: [place] [address] Procedure Note Juan Luis Parker MD - 06/24/2023 EXAM DESCRIPTION: DEXA AXIAL SKELETON BONE DENSITY 1 OR MORE SITES REASON FOR STUDY: 67 y/o year old F with given history of:postmenopausal - screening for osteoporosis Boat Cleaning Supervisor/Model: Hologic Horizon A (S/N [id number]) CLINICAL INFORMATION: Current height: 65 inches Maximum height: 65 inches Weight: 227 pounds Risk factors: Postmenopausal, adult fracture, inflammatory bowel disease COMPARISON: 04/24/2021 Dissimilar scan types or analysis methods precludes assessment for calculating a significant change. FINDINGS: AP LUMBAR SPINE L1-L4: Total BMD is 1.233 g/cm2 T-score is 1.7 LEFT HIP: Total BMD is 1.065 g/cm2 T-score is 1.0 Femoral neck BMD is 0.945 g/cm2 T-score is 0.9 FRAX: FRAX not reported due to T-scores of hip, femoral neck and/or spine beingat or above -1.0 (Normal). IMPRESSION: Normal bone mass. REFERENCE: Bone mineral density: Normal (T-score above or = -1.0) Low bone mass (T-score between -1.0 and -2.5) replaces thepreviously used term osteopenia Osteoporosis (T-score = or below -2.5) Medical evaluation for secondary causes of low bone mineral density may be appropriate. FRAX is a World Health Organization validated fracture risk assessmenttool that calculates a person's 10 year probability of a major osteoporosisrelated fracture and hip fracture. According to the National OsteoporosisFoundation guidelines, postmenopausal women and men age 50 or older with low bonemass and a 10 year probability of a major osteoporosis related fracture = or greater than 20% or a 10 year probability of a hip fracture = or greaterthan 3% should be considered for treatment. For further information, including treatment recommendations, please referto the 2019 ISCD Official Positions (http://www.iscd.org) and the NOF's Clinician's Guide to Prevention and Treatment of Osteoporosis (http://www.nof.org/professionals/clinical-guidelines) THIS IS AN ELECTRONICALLY VERIFIED FINAL REPORT 06/24/2023 4:28 PM - Electronically signed by Juan Luis Parker M.D. MF: [id number] Report ID: [id number] Reading Location: [id number] Kalyanisivan Jamison HOG PUSHER IMG DXA PROCEDURES Final Resul t * Hepatitis C antibody Blood (06/15/2023 11:10 AM ACID PUMP OPERATOR) Hep C Ab Nonreactive Nonreactive DANIELLE Comment: Antibodies to HCV not detected. Does NOT exclude the possibility of recent exposure to HCV. Current interpretive data was last revised on 22 Interpretive Data Nonreactive: Antibodies to HCV not detected. Does NOT exclude the possibility of recent exposure to HCV. Equivocal: Equivocal for HCV antibodies. Supplemental molecular testing will be automatically performed to determine infection status in accordance with current CDC screening recommendations. Reactive: Positive for HCV antibodies. This may represent current or past HCV infection. Supplemental molecular testing will be automatically performed to determine current infection status in accordance with current CDC screening recommendations. Interpretive data was last revised on 2019. 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 ADVANCE DIRECTIVE 09/20/2013 12:00 AM SUJ[employer]HA [employer] * Full Code (Latest Code Status on File) Date Activated Date Inactivated Comments 10/14/2024 2:22 AM 10/17/2024 4:07 PM * Full Code Date Activated Date Inactivated Comments 11/28/2023 9:15 AM 11/29/2023 8:15 PM * Full Code Date Activated Date Inactivated Comments 11/26/2023 2:03 AM 11/28/2023 9:15 AM * Full Code Date Activated Date Inactivated Comments 05/03/2021 6:04 AM 05/05/2021 8:19 PM * Full Code Date Activated Date Inactivated Comments 05/12/2018 1:11 PM 07/11/2018 10:36 AM Care Teams Bobbin Collector Relationship Specialty Start Date End Date Cassie Morales MD PCP - General Family Medicine 06/20/19 Tomasa Piña MA [address] [place] [address] ACO Care Emt 12/02/23 Naida Zamora MD [address] [place] [address] Consulting Physician Pulmonary Disease 02/16/25 Osito Bauer MD [address] [facility] [facility] [address] [place] [address] Consulting Physician Cardiovascular Disease 02/16/25 Jamal Barnard Si, MD [address] [facility] [place] [address] Consulting Physician Neurology 02/16/25
--- OUTSIDE RECORDS SUMMARY | 2025-05-05 14:32 | XMS_ITS | Clinical Summary ---
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 07/28/2017 Active EQUATE STOOL SOFTENER 100 MG capsule Take 1 tablet by mouth 2 (two) times a day. 09/09/2017 Active furosemide 20 MG tablet Take 2 tablets (40 mg total) by mouth 2 (two) times daily. 08/11/2017 Active losartan 25 MG tablet Take 1 tablet (25 mg total) by mouth daily. 01/07/2021 Active timolol (TIMOPTIC OCUDOSE) 0.5 % ophthalmic solution Place 1 drop into both eyes 2 (two) times daily. 09/03/2020 Active linaCLOtide (LINZESS) 145 MCG capsule Take 2 capsules (290 mcg total) by mouth every morning before breakfast. 09/30/2020 Active nitroglycerin 0.[address] 1 tablet (0.4 mg total) under the tongue every 5 (five) minutes as needed for Chest Pain. Active Esomeprazole Magnesium 20 MG Tab EC Take 20 mg by mouth 2 (two) times a day. Active fluorometholone 0.1 % ophthalmic suspension Place 1 drop into both eyes 4 (four) times daily. 07/16/2021 Active potassium chloride CR 10 MEQ Tab CR tablet Take 2 tablets (20 mEq total) by mouth daily. Active rivaroxaban (XARELTO) 2.5 MG tablet Take 1 tablet (2.5 mg total) by mouth daily with supper. 06/02/2021 Active Active Problems Problem Noted Date Diagnosed Date History of colon polyps 03/04/2021 Overview (03/04/2021): Added automatically from request for surgery [id number] Screening for colon cancer 03/04/2021 Overview (03/04/2021): Added automatically from request for surgery [id number] Family History Medical History Relation Comments Heart Disease Father Heart Disease Mother Relation Status Comments Father Mother Social History Tobacco Use Types Packs/Day Years Used Date Smoking Tobacco: Never Smokeless Tobacco: Never Alcohol Use Standard Drinks/Week Comments Never 0 (1 standard drink = 0.6 oz pur e alcohol) PHQ-2 Answer Date Recorded PHQ-2 Score - If the patient scores above 3, please move on to questions 3-9 1 07/31/2021 Comments No Sex and Gender Information Value Date Recorded Sex Assigned at Not on file Legal Sex Female 5:04 PM CDT Gender Identity Not on file Sexual Orientation Not on file Last Filed Vital Signs Vital Sign Reading Time Taken Comments Blood Pressure 132/78 07/31/2021 3:32 PM SLIP FEEDER Pulse 87 07/31/2021 3:32 PM SLIP FEEDER Temperature 35.8 C (96.4 F) 07/31/2021 3:32 PM SLIP FEEDER Respiratory Rate 16 04/17/2021 10:15 AM CDT Oxygen Saturation 97% 07/31/2021 3:32 PM SLIP FEEDER Inhaled Oxygen Concentration - - Weight 111.6 kg (246 lb) 10/04/2024 9:56 AM CDT Height 165.1 cm (5' 5) 10/04/2024 9:56 AM CDT Body Mass Index 40.94 10/04/2024 9:56 AM CDT Plan of Treatment Health Maintenance Due Date Last Done Comments RSV Immunization or 60+ Years (1 - Risk 60-74 years 1-dose series) 2014 Zoster Vaccines (3 of 3) 12/19/2015 10/24/2015, 10/04 Annual Medicare Wellness Visit 2019 COVID-19 Vaccine ( season) 2025 11/25/2021, 09/15/2020 Influenza Adult (#1) 2025 05/08/2020, 05/23/2019, 05/05/2019, Additional history exists Mammogram Screening 11/16/2025 11/17/2023, Colorectal Cancer Screening Colonoscopy (10 Years) 04/17/2031 04/17/2021, 04/17/2021 DTaP, Tdap and Td Vaccines (4 - Td or Tdap) 03/11/2032 03/11/2022, 03/11/2022, 01/11/2012 Pneumococcal Vaccine: 50+ Years Completed 03/11/2022, 04/04/2020, 09/19/2015 Hepatitis C Completed 06/15/2023, 06/15/2023 Dexa Scan (General) Completed 06/23/2023, 06/23/2023, 04/24/2021 Hepatitis A Vaccines Aged Out No long er eligible based on patient's age to complete this topic Meningococcal B Vaccine Aged Out No l onger eligible based on patient's age to complete this topic Meningococcal Vaccine Aged Out No adryan jason eligible based on patient's age to complete this topic RSV Immunizations Under 20 Months Aged Out No longer eligible based on patient's age to complete this topic Procedures Procedure Name Priority Date/Time Associated Diagnosis Comments COLONOSCOPY Routine 04/17/2021 8:44 AM CDT from Last 3 Months or Most Recently Relevant to Health Maintenance Insurance MEDICARE [employer] Advance Directives Documents on File Type Date Recorded 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
--- OUTSIDE RECORDS SUMMARY | 2025-05-05 14:32 | XMS_ITS | Encounter Summary ---
Author Organization [facility] Address [address] [place] [address] Care Team Providers Care Marine Equipment Research Engineer Name Role Phone Cassie Morales MD Primary Care Provider [phone] Tomasa Piña MA Unavailable Naida Zamora MD Unavailable [phone] Osito Bauer MD Unavailable [phone] [facility] Unavailable Encounter Details Date Type Department Care Team (Late st Contact Info) Description 10/31/2024 Telephone [facility] Family Medicine [address] [facility] [address] [place] [address] Cassie Morales MD [address] [place] [id number] Social History Tobacco Use Types Packs/Day Years Used Date Smoking Tobacco: Never Smokeless Tobacco: Never Alcohol Use Standard Drinks/Week Comments No 0 (1 standard drink = 0.6 oz pur e alcohol) [facility] Utilities Answer Date Recorded In the past [...] often do you attend chur ch or sikhism services? 1 to 4 times per year 10/16/2024 Do you belong to any clubs o r organizations such as sabianist groups, unions, fraternal or athletic groups, or school groups? No 10/16/2024 How often do you attend meet ings of the clubs or organizations you belong to? Never 10/16/2024 Are you , , di vorced, , never , or living with a partner? 10/16/2024 AUDIT-C Answer Date Recorded Q1: How often do you have a drink containing alcohol? Never 10/31/2024 Q2: How many drinks containi ng alcohol do you have on a typical day when you are drinking? Patient does not drink Q3: How often do you have si x or more drinks on one occasion? Never 10/31/2024 Overall Financial Resource Strain (CARDIA) Answe r Date Recorded How hard is it for you to pa y for the very basics like food, housing, medical care, and heating? Not hard at all 10/16/2024 PHQ-2 Answer Date Recorded PHQ-2 Total Score (If total score is 3 or more points, staff should administer the PHQ-9) 0 10/31/2024 Hunger Vital Sign Answer Date Recorded Within [...] things needed for daily living? No 10/16/2024 Housing Stability Vital Sign Answer Aryan e Recorded In the last 12 months, was t here a time when you were not able to pay the mortgage or rent on time? No 10/16/2024 In the past 12 months, how m any times have you moved where you were living? 0 10/16/2024 At any time in the past 12 m [facility], were you homeless or living in a fdc (including now)? No 10/16/2024 Personal Safety Answer Date Recorded Have you ever been in or are you currently in a harmful physical or emotional relationship or is someone making you feel afraid or unsafe? 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 Never 10/31/2024 11:29 AM SOULEYMANET Viji Kidd MA Q2: How many drinks containing alcohol do you have on a typical day when you are drinking? Patient does not drink 10/31/2024 11:29 AM Caterina Sheppard MA Q3: How often do you have six or more drinks on one occasion? Never 10/31/2024 11:29 AM Viji Sheppard MA documented as of this encounter Plan of Treatment Not on file documented as of this encounter Visit Diagnoses Not on filedocumented in this encounter Care Teams Marine Equipment Research Engineer Relationship Specialty Start Date End Date Cassie Morales MD PCP - General Family Medicine 06/20/19 Tomasa Piña MA [address] [place] [address] [address] [place] [address] ACO Care Hand Endband Cutter 12/02/23 Naida Zamora MD [address] [facility] [address] [place] [address] Consulting Physician Pulmonary Disease 02/16/25 Osito Bauer MD [address] [facility] [address] [place] [address] Consulting Physician Cardiovascular Disease 02/16/25 Jamal Barnard Si, MD [address] [facility] [address] [place] [id number] Consulting Physician Neurology 02/16/25 documented as of this encounter
--- OUTSIDE RECORDS SUMMARY | 2025-05-05 14:32 | XMS_ITS | Encounter Summary ---
Author Organization [facility] Address [address] [place] [address] Care Team Providers Care Forensic Dna Analyst Name Role Phone Cassie Morales MD Primary Care Provider [phone] Tomasa Piña MA Unavailable Naida Zamora MD Unavailable [phone] Osito Bauer MD Unavailable [phone] EvonJamal Si, MD Unavailable Reason for Visit * Reason Onset Date Comments Test Results 05/01/2025 Results Encounter Details Date Type Department Care Team (Late st Contact Info) Description 05/01/2025 Results Follow-Up [facility] Neurology [facility] [address] [address] Lakisha Monson MA MRI Internal Auditory Canal Brain W WO Contrast Social History Tobacco Use Types Packs/Day Years Used Date Smoking Tobacco: Never Passive Smoke Exposure: Past Smokeless Tobacco: Never Passive Exposure Comments:as a child Alcohol Use Standard Drinks/Week Comments Never 0 (1 standard drink = 0.6 oz pur e alcohol) [facility] Utilities Answer Date Recorded In [...] often do you attend chur ch or voodoo services? 1 to 4 times per year 10/16/2024 Do you belong to any clubs o r organizations such as evangelical groups, unions, fraternal or athletic groups, or [...] time in the past [address] [facility], were you homeless or living in a intermediate (including now)? 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 * Telephone Encounter - Lakisha Monson MA - 05/01/2025 1:22 PM CDT ----- Message from Jamal Barnard MD sent at 04/27/2025 3:35 PM CDT ----- MRI brain shows chronic age related changes. No significant interval change from prior MRI. Overall, no acute concerning findings on MRI. ----- Message ----- From: Interface, Radiology Results In Sent: 04/27/2025 3:27 PM CDT To: Jamal Barnard MD documented in this encounter Plan of Treatment Not on file documented as of this encounter Visit Diagnoses Not on filedocumented in this encounter Care Teams Forensic Dna Analyst Relationship Specialty Start Date End Date Cassie Morales MD PCP - General Family Medicine 06/20/19 Tomasa Piña MA [address] [place] [address] [address] [place] [address] ACO Care Aircraft Magneto Mechanic 12/02/23 Naida Zamora MD [address] [facility] [address] [place] [address] Consulting Physician Pulmonary Disease 02/16/25 Osito Bauer MD [address] [facility] [address] [place] [address] Consulting Physician Cardiovascular Disease 02/16/25 Jamal Barnard Si, MD [address] [facility] [address] [place] [address] Consulting Physician Neurology 02/16/25 documented as of this encounter
--- NOTE | 2025-05-05 14:41 | ED_ITS ---
HPI - Chest Pain General Chief Complaint: Chest Pain Stated Complaint: CP Time Seen by Provider: 05/05/25 14:05 History of Present Illness HPI narrative: Patient is a 69-year-old female who presents to the ER with chest pain that woke her up out of her sleep this morning. She reports the pain is intermittent and nitroglycerin helped relieve the pain. Patient also endorses shortness of breath with exertion and a recent cough. She endorses a history of high blood pressure, diabetes, congestive heart failure, atrial fibrillation. Patient denies any recent fevers, sore throat, congestion. She reports she usually goes to [facility] for her care. Patient reports her powerhouse mechanic supervisor recently prescribed her nitroglycerin sublingual but she has not had a chance to pick it up from her pharmacy yet. Related Data Home Medications ?Medication ?Instructions ?Recorded ?Confirmed ?Last Taken ?Type empagliflozin 5 mg-metformin ER 1 tablet PO DAILY 02/0405/06/23 Unknown History 1,000 mg tablet,extended release 24 hr (Synjardy XR) losartan 25 mg tablet 25 mg PO DAILY 03/04/2308/27 Unknown History multivitamin (One-A-Day Essential 1 tablet PO DAILY 05/06/23 Unknown History tablet) tramadol 50 mg tablet 50 mg PO Q6H PRN 03/04/23 Unknown History dicyclomine 10 mg capsule 10 mg PO BID 05/06/23 Unknown History esomeprazole magnesium 20 mg 20 mg PO DAILY 05/06/23 1 07/06/22 Unknown History capsule,delayed release (Nexium) potassium chloride 20 mEq 20 meq PO DAILY 05/06/2308/27 Unknown History tablet,extended release timolol maleate 0.5 % once daily 1 drp EACH EYE Q12H 1 07/06/22 05/06/23 Unknown History eye drops tizanidine 2 mg capsule 2 mg PO TID PRN 05/06/2308/27 Unknown History docusate sodium 100 mg capsule 100 mg PO BID 10/04/23 Unknown History fluticasone propionate 50 1 spray intranasal DAILY PRN 10/04/23 Unknown History mcg/actuation nasal spray,suspension furosemide 20 mg tablet 40 mg PO BID 10/04/23 Unkno wn History linaclotide 72 mcg capsule 145 mcg PO DAILY 10/04/23 Unknown History (Linzess) metoprolol succinate 25 mg 50 mg PO BID 10/04/23 Unkn own History tablet,extended release 24 hr rivaroxaban 20 mg tablet (Xarelto) 20 mg PO .EOD 10/03 Unknown History Allergies Allergy/AdvReac Type Severity Reaction Status Date / Time gentamicin Allergy Mild Rash Verified 05/05/25 13:47 Sulfa (Sulfonamide Allergy Mild Rash Verified 05/05/25 13:47 Antibiotics) Review of Systems 2 Review of Systems: All systems reviewed & are unremarkable except as noted in HPI and below PMFSH Past Medical History Medical History Encounter for screening for other viral diseases Diabetes GERD (gastroesophageal reflux disease) Arthritis Allergies Counseling on health promotion and disease prevention Generalized osteoarthritis [place] positive Rheumatoid arthritis with rheumatoid factor of multiple sites without organ or systems involvement Surgical History Surgical History No pertinent past surgical history Family History Family History Other Asthma Carcinoma of colon Diabetes mellitus Heart disease Hypertension Social History Social History Social History: Caffeine-coffee Smoking status: Never smoker Alcohol intake: never Substance use: never Substance use type: does not use Lack of Transportation: No Lack of Food: Never True Current Housing: I Have Housing Concerned About Future Housing: No Difficulty Paying Gas/Electric Bills: No Difficulty Paying for Meds: No Currently Unemployed: No Education: Decline to Answer Difficulty w/ Childcare or Family Care: No Living arrangements: with family Occupation/Education: retired Exam 2 Narrative: GENERAL: Well appearing, well-nourished, non-toxic, in no acute distress. HEAD: Normocephalic, atraumatic. NECK: Supple. No adenopathy, no masses. RESPIRATORY: Airway patent, respirations nonlabored. Clear to auscultation bilaterally, no rales, rhonchi, wheezing. CARDIOVASCULAR: Regular rate and rhythm without murmurs, rubs, or gallops. Peripheral pulses 2+ and equal bilaterally. ABDOMINAL: Soft, nontender, nondistended, no hepatosplenomegaly. Normoactive BS. MUSCULOSKELETAL: Moves all extremities. Strength/ROM intact without gross deformities. SKIN: Warm, dry, normal color. No rashes. NEURO: A&O X3. Speech clear. Cranial nerves II-XII intact. No ataxic movements. PSYCHIATRIC: Appropriate mood and affect. Normal interaction. Course Vital Signs Vital signs: Vital Signs Temperature 36.5 C 05/05/25 13:36 Pulse Rate 86 05/05/25 13:36 Respiratory Rate 20 05/05/25 13:36 Blood Pressure 125/79 05/05/25 13:36 Pulse Oximetry 97 05/05/25 13:36 Oxygen Delivery Room Air 05/05/25 13:36 Temperature 36.5 C 05/05/25 13:36 Pulse Rate 84 05/05/25 18:23 Respiratory Rate 14 05/05/25 18:23 Blood Pressure 108/65 05/05/25 18:23 Pulse Oximetry 96 05/05/25 18:23 Oxygen Delivery Room Air 05/05/25 13:45 MDM - Chest Pain MDM Narrative Medical decision making narrative: Patient is a 69-year-old female who presents to the ER with chest pain that woke her up out of her sleep this morning. She reports the pain is intermittent and nitroglycerin helped relieve the pain. Patient also endorses shortness of breath with exertion and a recent cough. She endorses a history of high blood pressure, diabetes, congestive heart failure, atrial fibrillation. Patient denies any recent fevers, sore throat, congestion. She reports she usually goes to [facility] for her care.Patient reports her powerhouse mechanic supervisor recently prescribed her nitroglycerin sublingual but she has not had a chance to pick it up from her pharmacy yet. Labs Ordered: CBC, CMP, proBNP, PTT, INR, lipase Imaging Ordered: CT diagnostic chest, chest x-ray Medications Ordered: Results: PT's CT scan indicates No significant coronary calcification is present ([id number]) LUNGS: Clear without consolidation, effusion, or pneumothorax. HEART AND PERICARDIUM: Mild cardiomegaly. AORTA: Normal caliber aorta. ADENOPATHY/MEDIASTINUM: None. LIMITED VIEWS OF THE ABDOMEN: Cirrhotic disease of the liver suspected. Calcified splenic granulomas. Minimal cholelithiasis. OSSEOUS STRUCTURES: No acute osseous abnormality.No suspicious lesions. OVERLYING SOFT TISSUES: Unremarkable. THYROID: The thyroid is unremarkable. Diagnosis: atypical chest pain, acute on chronic CHF Patient Education/Shared MDM: Results of lab work shared with patient and her family. She endorses improvement of symptoms following Nitro paste medication administration by EMS. Pt was advised to remove her nitro paste medication at 9:30pm this evening. She also endorses improvement of symptoms following a GI cocktail. Pt encouraged to take Pepcid OTC if her symptoms return. Patient strongly advised to follow-up with her powerhouse mechanic supervisor and PCP as soon as possible. She will not be discharged home with any new prescriptions. Strict return precautions provided. Patient verbalized understanding and is in agreement with plan. Vital signs stable at time of discharge. All questions answered. Differential Diagnosis Differential diagnosis: Likely atypical chest pain, st elevation myocardial infarction and costochondritis Lab Data Attestation: I reviewed the patient's lab results. 05/05/25 14:41 05/05/25 14:41 Labs: Lab Results 05/05/25 05/05/25 05/05/25 Range/Units 14:41 14:42 18:01 WBC 8.5 (4.5-10.0) K/mm3 RBC 4.43 (4.2-5.4) M/mm3 Hgb 13.3 (12.0-15.0) g/dL Hct 43.2 (37.0-47.0) % MCV 97.5 (80-100) fl MCH 30.0 (26-34) pg MCHC 30.8 L (32-36) g/dl RDW 15.0 H (11.5-14.5) % Plt Count 214 (150-375) k/mm3 MPV 10.2 (7.4-10.4) fl Immature Gran % (Auto) 0.6 H (0-0.5) % Neut % (Auto) 69.5 (45.5-73.1) % Lymph % (Auto) 18.9 (18.3-44.2) % [place] % (Auto) 9.0 H (2.6-8.5) % Eos % (Auto) 1.5 (0-4.4) % Baso % (Auto) 0.5 (0.2-1.2) % Lymph # (Auto) 1.60 (0.9-3.2) K/mm3 [place] # (Auto) 0.8 H (0.1-0.6) K/mm3 Eos # (Auto) 0.1 (0-0.3) K/mm3 Baso # (Auto) 0.0 (0.0-0.1) K/mm3 Abs Immat Gran (auto) 0.05 H (0.00-0.031) K/mm3 Absolute Neuts (auto) 5.9 (1.3-6.7) K/mm3 Absolute Nucleated RBC 0.000 (0.0-0.012) K/mm3 Nucleated RBC % 0.0 (0.0-0.2) % PT 21.2 H (11.1-14.7) Seconds INR 1.9 APTT 56.3 H (22.3-36.8) Seconds Sodium 139 (137-145) mmol/L Potassium 3.9 (3.4-5.0) mmol/L Chloride 99 (98-107) mmol/L Carbon Dioxide 33 H (22-30) mmol/L Anion Gap 7 (4-12) mmol/L BUN 14 (7-17) mg/dL Creatinine 0.93 (0.7-1.0) mg/dL Estim Creat Clear Calc 62 ml/min Estimated GFR 60 (59 - ) Glucose 99 (65-110) mg/dL Calcium 9.1 (8.4-10.2) mg/dL Total Bilirubin 0.2 (0.2-1.3) mg/dL AST 25 (14-36) U/L ALT 17 (6-35) U/L Alkaline Phosphatase 112 (38-126) U/L Troponin I < 0.012 < 0.012 (0.000-0.034) ng/mL NT-Pro-B Natriuret Pep 1060 H Cancelled (19.9-100) pg/mL Total Protein 7.6 (6.3-8.2) g/dL Albumin 4.2 (3.5-5.1) g/dL Lipase 94 (23-300) U/L Imaging Data Attestation: I personally reviewed and interpreted this imaging study as follows: Radiologist's impression: Impressions Chest X-Ray 05/05/25 14:27 Impression: CHF Chest CT 05/05/25 15:52 IMPRESSION: 1. No etiology identified to explain the patient's symptoms. Follow up suggested if symptoms persist. Discharge Plan Discharge Clinical Impression: Chest pain, History of CHF (congestive heart failure), Chest pain due to GERD Patient Disposition: Home Condition: Stable Instructions: Antibiotic Form, Chest Pain (ED) Additional Instructions: Please return to the ER with any worsening symptoms. Follow-up with primary care provider and Cardiology as soon as possible. Take all medications as prescribed, including regularly scheduled medications. Please berry picker your prescribed nitroglycerin as soon as possible. You may take Pepcid oral [id number] as needed for gastric reflux symptoms. Patient Language: Senegalese Prescriptions: No Action tramadol 50 mg tablet 50 mg PO Q6H PRN Synjardy XR 5-1,000 mg tablet, IR - ER, biphasic 24hr 1 tablet PO DAILY losartan 25 mg tablet 25 mg PO DAILY multivitamin [One-A-Day Essential] Tablet 1 tablet PO DAILY docusate sodium 100 mg capsule 100 mg PO BID furosemide 20 mg tablet 40 mg PO BID Linzess 72 mcg capsule 145 mcg PO DAILY metoprolol succinate 25 mg tablet extended release 24 hr 50 mg PO BID Xarelto 20 mg tablet 20 mg PO .EOD Rx Instructions: must administer with evening meal tizanidine 2 mg capsule 2 mg PO TID PRN dicyclomine 10 mg capsule 10 mg PO BID esomeprazole magnesium [Nexium] 20 mg capsule,delayed release(DR/EC) 20 mg PO DAILY potassium chloride 20 mEq tablet extended release 20 meq PO DAILY timolol maleate 0.5 % drops, once daily 1 drp EACH EYE Q12H fluticasone propionate 50 mcg/actuation spray,suspension 1 spray intranasal DAILY PRN Rx Instructions: administer into each nostril hydroxychloroquine 200 mg tablet 200 mg PO BID Qty: 180 1RF methotrexate sodium 2.5 mg tablet 25 mg PO WEEKLY Qty: 40 2RF folic acid 1 mg tablet 2 mg PO DAILY Qty: 180 1RF Follow-up/Referrals: Carmen,MD Cassie [Primary Care Provider] Time of Disposition: 19:06
[2025-05-05 14:51] LABS: Hematocrit 43.2 % (37.0-47.0); Hemoglobin 13.3 g/dL (12.0-15.0); Immature Granulocyte Percent A 0.6 % (0-0.5); Lymphocytes Absolute Auto 1.60 K/mm3 (0.9-3.2); Mean Corpuscular HGB Conc 30.8 g/dl (32-36); Mean Corpuscular Hemoglobin 30.0 pg (26-34); Mean Corpuscular Volume 97.5 fl (80-100); Nucleated Red Blood Cells Absolute Auto 0.000 K/mm3 (0.0-0.012); Nucleated Red Blood Cells Perc 0.0 % (0.0-0.2); Platelet Count Result 214 k/mm3 (150-375); Red Blood Count 4.43 M/mm3 (4.2-5.4); White Blood Count 8.5 K/mm3 (4.5-10.0)
[2025-05-05 15:02] LABS: Alanine Aminotransferase 17 U/L (6-35); Albumin Level 4.2 g/dL (3.5-5.1); Alkaline Phosphatase 112 U/L (38-126); Anion Gap 7 mmol/L (4-12); Aspartate Amino Transferase 25 U/L (14-36); Bilirubin,Total 0.2 mg/dL (0.2-1.3); Blood Urea Nitrogen 14 mg/dL (7-17); Calcium 9.1 mg/dL (8.4-10.2); Carbon Dioxide 33 mmol/L (22-30); Chloride 99 mmol/L (98-107); Estimated CRCL calculation 62 ml/min; Estimated Glomerular Filt Rate 60; Glucose 99 mg/dL (65-110); Lipase 94 U/L (23-300); Potassium 3.9 mmol/L (3.4-5.0); Sodium 139 mmol/L (137-145); Total Protein 7.6 g/dL (6.3-8.2)
[2025-05-05 15:04] LABS: INR 1.9; Prothrombin Time 21.2 Seconds (11.1-14.7)
[2025-05-05 15:05] LABS: Partial Thromboplastin Time 56.3 Seconds (22.3-36.8)
[2025-05-05 15:13] LABS: NT Pro B Type Natriuretic Pept 1060 pg/mL (19.9-100); Troponin I < 0.012 ng/mL (0.000-0.034)
--- NOTE | 2025-05-05 15:15 | PC.NURSE ---
Bedside report given to this RN by prince hernandez. All questions answered. Pt. has no requests at this time. Staff member from [facility] also called for pt. update. Update provided.
--- NOTE | 2025-05-05 15:30 | PC.NURSE ---
Pt. to CT.
[2025-05-05 16:42] VITALS: BP 135/85; PULSE 85; RESP 20; O2SAT 97
--- NOTE | 2025-05-05 17:53 | ECG_ITS ---
Test Date: 2025-05-05 13:45:22 Measurements Intervals [place] Rate: 83 P: 0 PA: 0 QRS: -17 QRSD: 86 T: 4 QT: 316 QTc: 372 Interpretive Statements ATRIAL FIBRILLATION baseline artifact limits interpretation LOW QRS VOLTAGE IN PRECORDIAL LEADS [QRS DEFLECTION < 1.0 mV IN CHEST LEADS] ABNORMAL RHYTHM ECG No previous ECG available for comparison Electronically Signed On 05-06-2025 13:19:26 [employer]PER[employer] by Percy Fountain M.D.
[2025-05-05 18:23] VITALS: BP 108/65; PULSE 84; RESP 14; O2SAT 96
--- NOTE | 2025-05-05 18:33 | PC.NURSE ---
Pt. has nitro paste on R. chest that EMS applied. GEOSPATIAL DEVELOPER Amelia made aware. Ordered oral nitro not administered per GEOSPATIAL DEVELOPER.
[2025-05-05 18:35] LABS: Troponin I < 0.012 ng/mL (0.000-0.034)
[2025-05-05] MEDS: BELLADONNA ALK/PHENOB ELIX 10 ML, MAG HYDROX/ALUMINUM HYD/SIMETH 30 ML, LIDOCAINE 2% VI... PO (18:54)
--- NOTE | 2025-05-05 18:56 | PC.NURSE ---
Waiting to receive ordered oral lasix from pharmacy. Verbal order given for tylenol from [employer]NER for headache. Pt. educated by DATA PROCESSING [employer] PROJECT PLANNER to wipe off nitro paste at 1925.
[2025-05-05] MEDS: FUROSEMIDE TABLET 20 MG, FUROSEMIDE TABLET 40 MG 60 MG PO (19:05)
[2025-05-05] MEDS: ACETAMINOPHEN 500 MG TABLET 1000 MG PO (19:24)
[2025-05-05 19:39] VITALS: BP 119/81; PULSE 81; RESP 12; O2SAT 95
== END 2025-05-05 19:32 | disposition home or self-care (01) ==
PROVIDERS: Emergency Medicine; Emergency Provider Registered Nurse; PCP Family Medicine
DX: K21.9 Gastro-esophageal reflux disease without esophagitis (principal); I11.0 Hypertensive heart disease with heart failure; I50.9 Heart failure, unspecified; I48.91 Unspecified atrial fibrillation; E11.9 Type 2 diabetes mellitus without complications; M19.90 Unspecified osteoarthritis, unspecified site; M05.79 Rheumatoid arthritis with rheumatoid factor of multiple sites without organ or systems involvement; Z79.01 Long term (current) use of anticoagulants; Z79.899 Other long term (current) drug therapy; Z79.84 Long term (current) use of oral hypoglycemic drugs; R94.31 Abnormal electrocardiogram [ECG] [EKG]
CPT/HCPCS: 36415; 71046; 71260; 80053; 83690; 83880; 84484; 85025; 85610; 85730; 93005; 99284; A9270; J1938; Q9967